=== PATIENT | male | born 1970 | race Caucasian/White ===

== ENCOUNTER 2019-12-01 11:03 | Emergency (ER) | payer OTHER ==
[2019-12-01 11:17] VITALS: BP 140/84; PULSE 90; TEMP 98; BMI 34.3
--- NOTE | 2019-12-01 12:20 | PDOC ---
History of Present Illness - General Chief Complaint: Laceration Stated Complaint: LACERATION Time Seen by Provider: 12/01/19 11:29 - History of Present Illness Initial Comments: 12/01/19 12:17 CHIEF COMPLAINT: laceration HISTORY OF PRESENT ILLNESS: 48-year-old male with no past medical history presents to fast track with laceration to left index finger. Patient reports he was cleaning out his garage when he cut his finger on a tile approximately 2 hr [employer]. Patient reports last tetanus shot was 3 years ago. No recent travel or sick contacts. PAST MEDICAL HISTORY: Denies past medical history FAMILY HISTORY: Denies SOCIAL HISTORY: Denies tobacco, alcohol, illicit drug use. SURGICAL HISTORY: Denies ALLERGIES: No known drug allergies REVIEW OF SYSTEMS General/Constitutional: Denies fever or chills. Denies weakness, weight change. HEENT: Denies change in vision. Denies ear pain or discharge. Denies sore throat. Cardiovascular: Denies chest pain or shortness of breath. Respiratory: Denies cough, wheezing, or hemoptysis. Gastrointestinal: Denies nausea, vomiting, diarrhea or constipation. Denies rectal bleeding. Genitourinary: Denies dysuria, frequency, or change in urination. Musculoskeletal: Denies joint or muscle swelling or pain. Denies neck or back pain. Skin: Laceration to left index finger. Neurologic: Denies headache, vertigo, loss of consciousness, or loss of sensation. Psychiatric: Denies depression or anxiety. PHYSICAL EXAM General Appearance: Well-appearing, appropriately dressed. No apparent distress , no intoxication. HEENT: EOMI, PERRLA, normal ENT inspection, normal voice, TMs normal, pharynx normal. No conjunctival pallor. No photophobia, scleral icterus. Neck: Supple. Trachea midline. No tenderness, rigidity, carotid bruit, stridor , lymphadenopathy, or thyromegaly. Respiratory/Chest: Lungs CTAB. No shortness of breath, chest tenderness, respiratory distress, accessory muscle use. No crackles, rales, rhonchi, stridor , wheezing, dullness Cardiovascular: RRR. S1, S2. No JVD, murmur, bradycardia, tachycardia. Vascular Pulses: Dorsalis-Pedis (R): 2+, Dorsalis-Pedis (L): 2+ Gastrointestinal/Abdominal: Normal bowel sounds. Abdomen soft, non-distended. No tenderness or rebound tenderness. No organomegaly, pulsatile mass, guarding , hernia, hepatomegaly, splenomegaly. Lymphatic: No adenopathy, tenderness. Musculoskeletal/Extremities: Linear laceration to palmar aspect of left index finger approximately 3 cm in length with no tendon involvement, no foreign body appreciated. FROM of all extremities, normal capillary refill. Pelvis Stable. No CVA tenderness. No tenderness to extremities, pedal edema, swelling, erythema or deformity. Integumentary: Appropriate color, dry, warm. No cyanosis, erythema, jaundice or rash Neurologic: safe and vault mechanic II-XII intact. Fully oriented, alert. Appropriate mood/affect. Motor strength 5/5. No appreciable EOM palsy, facial droop or sensory deficit. 12/01/19 12:19 Past History - Past Medical History Allergies/Adverse Reactions: Allergies Allergy/AdvReac Type Severity Reaction Status Date / Time No Known Allergies Allergy Verified 12/01/19 11:17 Home Medications: Ambulatory Orders Tramadol HCl [Ultram] 50 mg PO QID #20 tablet 05/31/15 COPD: No - Surgical History Abdominal Surgery: Yes (rt inguinal) - Psycho Social/Smoking Cessation Hx Smoking Status: No Smoking History: Never smoked Number of Cigarettes Smoked Daily: 0 Hx Alcohol Use: No *Physical Exam - Vital Signs Last Vital Signs Temp Pulse Resp BP Pulse Ox 98 F 90 18 140/84 99 12/01/19 11:14 12/01/19 11:14 12/01/19 11:14 12/01/19 11:14 12/01/19 11:14 Procedures - Consent Consent obtained: Verbal, From Patient - Laceration/Wound Repair Left Volar Finger 2nd digit Wound Length: 2.6 to 5.0 cm Wound Explored: clean, no foreign body present Wound's Depth, Shape: linear Irrigated w/ Saline: Yes Anesthesia: 1% Lidocaine Amount of Anesthetic (ccs): 3 Wound Repaired With: Sutures Suture Size/Type: 5:0 Number of Sutures: 5 Sterile Dressing Applied: Yes (xeroform, bandage) Progress: 12/01/19 12:38 Laceration repair performed with five 5-0 simple interrupted sutures. Edges well approximated, hemostasis achieved. Patient tolerated well. Medical Decision Making - Medical Decision Making 12/01/19 12:19 48-year-old male with no past medical history presents to fast track with laceration to left index finger. lac repair performed tdap UTD Post laceration repair instructions provided. Advised patient of signs and symptoms for return to ED. Patient verbalized understanding and agrees to plan. Discharge - Discharge Information Problems reviewed: Yes Clinical Impression/Diagnosis: Laceration of finger Qualifiers: Encounter type: sequela Finger: index finger Damage to nail status: without damage Foreign body presence: without foreign body Laterality: left Qualified Code(s): S61.211S - Laceration without foreign body of left index finger without damage to nail, sequela Condition: Stable Disposition: HOME - Admission No - Follow up/Referral Referrals: Riddhi Corcoran [Primary Care Provider] - - Patient Discharge Instructions Patient Printed Discharge Instructions: DI for Laceration Repair Additional Instructions: As discussed, please keep area of laceration clean and dry for the next 24-48 hours. Afterwards you may wash with mild soap and water. Return to fast track or your primary care doctor for suture removal in 10-14 days. If you experience any redness, swelling, streaking, warmth, to the site of the cut, or develop fever, nausea, vomiting, or diarrhea, please return to the ER. - Post Discharge Activity
== END 2019-12-01 12:44 | disposition home or self-care (01) ==
LOC: JERFT 11:03
PROC: 0JQK0ZZ Repair Left Hand Subcutaneous Tissue and Fascia, Open Approach (ICD-10-PCS; principal; 2019-12-01)
DX: S61.211A Laceration without foreign body of left index finger without damage to nail, initial encounter (principal); W26.8XXA Contact with other sharp object(s), not elsewhere classified, initial encounter; Y93.H9 Activity, other involving exterior property and land maintenance, building and construction; Y92.038 Other place in apartment as the place of occurrence of the external cause; Y99.8 Other external cause status
CPT/HCPCS: 99282-25

== ENCOUNTER 2020-01-31 13:13 | Emergency (ER) | payer OTHER ==
[2020-01-31] MEDS ORDERED: ACETAMINOPHEN 500 MG TABLET (FP) PO ONE (13:29)
--- NOTE | 2020-01-31 13:29 | PDOC ---
Rapid Medical Evaluation Time Seen by Provider: 01/31/20 13:17 Medical Evaluation: Allergies Allergy/AdvReac Type Severity Reaction Status Date / Time No Known Allergies Allergy Verified 12/01/19 11:17 01/31/20 13:27 CC: right cheek pain s/p slip and fall in shower PE: No bony deformity, crepitus or tenderness to palpation. EOMI. Orders: CT facial bones, tylenol Patient will proceed to ED for further evaluation. Discharge Disposition - Diagnosis Facial pain - Referrals - Patient Instructions - Post Discharge Activity
[2020-01-31 13:30] VITALS: BP 121/76; PULSE 77; TEMP 98.1; BMI 33.3
[2020-01-31] MEDS ORDERED: ACETAMINOPHEN 325 MG TABLET (FP) ONE (13:41)
[2020-01-31] MEDS ORDERED: IBUPROFEN 600 MG TABLET (FP) PO ONE ×2 (15:15→15:18)
--- NOTE | 2020-01-31 15:17 | PDOC ---
History of Present Illness - General Chief Complaint: Injury Stated Complaint: HEADACHE Time Seen by Provider: 01/31/20 13:17 - History of Present Illness Initial Comments: 01/31/20 15:15 49-year-old male denies comorbidities presents for evaluation of headache and dizziness after falling in the shower 2 days ago. Past History - Past Medical History Allergies/Adverse Reactions: Allergies Allergy/AdvReac Type Severity Reaction Status Date / Time No Known Allergies Allergy Verified 01/31/20 13:30 Home Medications: Ambulatory Orders NK [No Known Home Medication] 01/31/20 COPD: No - Surgical History Abdominal Surgery: Yes (rt inguinal) - Psycho Social/Smoking Cessation Hx Smoking Status: No Smoking History: Never smoked Number of Cigarettes Smoked Daily: 0 Hx Alcohol Use: No Drug/Substance Use Hx: No Review of Systems - Review of Systems Constitutional: No: Fever ABD/GI: No: Vomiting Neurological: Yes: Headache, Dizziness *Physical Exam - Vital Signs Last Vital Signs Temp Pulse Resp BP Pulse Ox 98.1 F 77 16 121/76 97 01/31/20 13:25 01/31/20 13:25 01/31/20 13:25 01/31/20 13:25 01/31/20 13:25 - Physical Exam 01/31/20 15:16 GENERAL: The patient is awake, alert, and fully oriented, in no acute distress. HEAD: Normal with no signs of trauma. EYES: sclera anicteric, conjunctiva clear. ENT: Ears normal tympanic membranes normal oropharynx clear uvula midline NECK: Normal range of motion LUNGS: Breath sounds equal, clear to auscultation bilaterally. No wheezes, and no crackles. HEART: S1 and S2 without murmur, rub or gallop. ABDOMEN: Soft, nontender, normoactive bowel sounds. No guarding, no rebound. No masses. EXTREMITIES: Normal range of motion, no edema. No clubbing or cyanosis. No cords, erythema, or tenderness. NEUROLOGICAL: Cranial nerves II through XII grossly intact. PSYCH: Normal mood, normal affect. SKIN: Warm, Dry, normal turgor, no rashes or lesions noted. ED Treatment Course - RADIOLOGY Radiology Studies Ordered: Category Date Time Status HEAD CT WITHOUT CONTRAST [CT] Stat CT Scan 01/31/20 14:03 Completed - Medications Given in the ED: ED Medications Discontinued Medications Generic Name Dose Route Start Last Admin Trade Name Chen PRN Reason Stop Dose Admin Acetaminophen 1,000 mg 01/31/20 13:29 01/31/20 13:44 Tylenol - PO 01/31/20 13:30 1,000 mg ONCE ONE Administration Medical Decision Making - Medical Decision Making 01/31/20 15:16 Negative CTs of facial bones and head, follow-up with neurology. Note for work provided no work x1 week until cleared by neurology. Also discussed postconcussive syndrome and restrictions no strenuous activity until cleared by neurology. I have reviewed the pathophysiology with the patient. They are in agreement with the treatment plan all questions were answered to their satisfaction. Understanding for follow-up without fail was also conveyed to the patient. Again they are in agreement. Discharge - Discharge Information Problems reviewed: Yes Clinical Impression/Diagnosis: Facial pain, Concussion Condition: Stable Disposition: HOME - Admission No - Follow up/Referral Referrals: Riddhi Corcoran [Primary Care Provider] - - Patient Discharge Instructions Additional Instructions: Tylenol and Motrin as directed for pain. Return to the emergency room for worsening symptoms. Without fail follow-up with neurology in 2 to 3 days for further evaluation and treatment options. No strenuous activity until cleared by neurology. - Post Discharge Activity Work/Back to School Note: Back to Work
== END 2020-01-31 15:19 | disposition home or self-care (01) ==
LOC: JERFT 13:13
DX: S06.0X0A Concussion without loss of consciousness, initial encounter (principal); G44.319 Acute post-traumatic headache, not intractable; W18.2XXA Fall in (into) shower or empty bathtub, initial encounter; Y93.E1 Activity, personal bathing and showering; Y92.031 Bathroom in apartment as the place of occurrence of the external cause; Y99.8 Other external cause status
CPT/HCPCS: 70450-TC; 70486-TC; 99284-25

== ENCOUNTER 2020-08-14 16:35 | Emergency (ER) | payer OTHER ==
--- NOTE | 2020-08-14 16:53 | PDOC ---
Rapid Medical Evaluation Time Seen by Provider: 08/14/20 16:51 Medical Evaluation: Allergies Allergy/AdvReac Type Severity Reaction Status Date / Time No Known Allergies Allergy Verified 01/31/20 13:30 08/14/20 16:51 I have performed a brief in-person evaluation of this patient The patient presents with a chief complaint of: R lower back pain, no sxs, n/v/f/c. No trauma Pertinent physical exam findings:stable, NAD I have ordered the following:nothing The patient will proceed to the ED for further evaluation Discharge Disposition - Diagnosis Low back ache Qualifiers: Chronicity: acute Back pain laterality: right Sciatica presence: without sciatica Qualified Code(s): M54.5 - Low back pain - Referrals - Patient Instructions - Post Discharge Activity
[2020-08-14 16:54] VITALS: BP 122/79; PULSE 80; TEMP 97.4; BMI 33.7
[2020-08-14 18:03] LABS: BASO % 0.7 % (0-2.0); EOS % 1.7 % (0-4.5); HEMATOCRIT 41.8 % (35.4-49); HEMOGLOBIN 14.2 GM/dL (11.7-16.9); LYMPH % 23.8 % (8-40); MCH 30.6 pg (25.7-33.7); MCHC 33.9 g/dl (32.0-35.9); MEAN CELL VOLUME 90.3 fl (80-96); MEAN PLT VOLUME 9.4 fl (7.5-11.1); NEUT % 68.8 % (42.8-82.8); PLATELET COUNT 208 K/MM3 (134-434); RBC 4.63 M/mm3 (4.00-5.60); RDW 13.5 % (11.9-15.9); WHITE BLOOD COUNT 9.9 K/mm3 (4.0-10.0)
[2020-08-14 18:43] LABS: ALBUMIN 4.4 g/dl (3.4-5.0); BILIRUBIN,TOTAL 0.7 mg/dL (0.2-1); BLOOD UREA NITROGEN 10.1 mg/dL (7-18); POTASSIUM 3.8 mmol/L (3.5-5.1); TOT PROT 7.8 g/dl (6.4-8.2)
--- OUTSIDE RECORDS SUMMARY | 2020-08-14 18:51 | XMS ---
:1970 Author Organization [facility] Care Team Providers Name Role Phone Kovoor, Erickson Unavailable Unavailable Kovoor, Erickson Unavailable Unavailable Kovoor, Erickson Unavailable Unavailable Kovoor, Erickson Unavailable Unavailable Kovoor, Erickson Unavailable Unavailable Kovoor, Erickson Unavailable Unavailable Kovoor, Erickson Unavailable Unavailable Kovoor, Erickson Unavailable Unavailable Kovoor, Erickson Unavailable Unavailable Kovoor, Erickson Unavailable Unavailable Kovoor, Erickson Unavailable Unavailable Papo Reyez Unavailable [phone] Costa, Kira C Unavailable Unavailable Costa, C Unavailable Unavailable Costa, C Unavailable Unavailable Costa, C Unavailable Unavailable Costa, C Unavailable Unavailable Costa, C Unavailable Unavailable Costa, C Unavailable Unavailable Costa, C Unavailable Unavailable Costa, C Unavailable Unavailable Soham Unavailable [phone] Ringstad Unavailable Unavailable Ringstad Unavailable Unavailable Ringstad Unavailable Unavailable Ringstad Unavailable Unavailable Ringstad Unavailable Unavailable Ringstad Unavailable Unavailable Ringstad Unavailable Unavailable Ringstad Unavailable Unavailable Ringstad Unavailable Unavailable Ringstad Unavailable Unavailable Austin Unavailable [phone] Austin Unavailable [phone] Riddhi Unavailable [phone] Riddhi Unavailable [phone] Riddhi Unavailable [phone] Riddhi Unavailable [phone] Riddhi Unavailable [phone] Grider Unavailable Unavailable Grider Unavailable Unavailable Grider Unavailable Unavailable Grider Unavailable Unavailable Grider Unavailable Unavailable Grider Unavailable Unavailable Grider Unavailable Unavailable Grider Unavailable Unavailable Grider Unavailable Unavailable Grider Unavailable Unavailable Darkey Unavailable Unavailable Darkey Unavailable Unavailable Darkey Unavailable Unavailable Darkey Unavailable Unavailable Ridley Unavailable [phone] Ridley Unavailable + DANDRE DARLENE Unavailable Unavailable Aszalos, Zaria Unavailable Unavailable Aszalos, Zaria Unavailable Unavailable Aszalos, Zaria Unavailable Unavailable Aszalos, Zaria Unavailable Unavailable Aszalos, Zaria Unavailable Unavailable Aszalos, Zaria Unavailable Unavailable Aszalos, Zaria Unavailable Unavailable Aszalos, Zaria Unavailable Unavailable Aszalos, Zaria Unavailable Unavailable Erin Craig MD Unavailable Unavailable Erin Craig MD Unavailable Unavailable Erin Craig MD Unavailable Unavailable Erin Craig MD Unavailable Unavailable Erin Craig MD Unavailable Unavailable Erin Craig MD Unavailable Unavailable Erin Craig MD Unavailable Unavailable Erin Craig MD Unavailable Unavailable Erin Craig MD Unavailable Unavailable Erin Craig MD Unavailable Unavailable Erin Craig MD Unavailable Unavailable Erin Craig MD Unavailable Unavailable Erin Craig MD Unavailable Unavailable Erin Craig MD Unavailable Unavailable Erin Craig MD Unavailable Unavailable Dandre, P MD Unavailable Unavailable Dandre, P MD Unavailable Unavailable Dandre, P MD Unavailable Unavailable Dandre, P MD Unavailable Unavailable Dandre, P MD Unavailable Unavailable Dandre, P MD Unavailable Unavailable Ringstad Unavailable Unavailable Ringstad Unavailable Unavailable Ringstad Unavailable Unavailable Ringstad Unavailable Unavailable Ringstad Unavailable Unavailable Ringstad Unavailable Unavailable Ringstad Unavailable Unavailable Ringstad Unavailable Unavailable Ringstad Unavailable Unavailable Ringstad Unavailable Unavailable Dandre Unavailable Unavailable Dandre Unavailable Unavailable Dandre Unavailable Unavailable Dandre Unavailable Unavailable Re-disclosure Warning The records that you are about to access may contain information from federally- assisted alcohol or drug abuse programs. If such information is present, then the following federally mandated warning applies: This information has been disclosed to you from records protected by federal confidentiality rules (42 CFR part 2). The federal rules prohibit you from making any further disclosure of this information unless further disclosure is expressly permitted by the written consent of the person to whom it pertains or as otherwise permitted by 42 CFR part 2. A general authorization for the release of medical or other information is NOT sufficient for this purpose. The Federal rules restrict any use of the information to criminally investigate or prosecute any alcohol or drug abuse patient.The records that you are about to access may contain highly sensitive health information, the redisclosure of which is protected by Article 27-F of the [facility] Public Health law. If you continue you may haveaccess to information: Regarding HIV / AIDS; Provided by facilities licensed or operated by the [facility] Office of Mental Health; or Provided by the [facility] Office for People With Developmental Disabilities. If such information is present, then the following [facility] mandated warning applies: This information has been disclosed to you from confidential records which are protected by state law. State law prohibits you from making any further disclosure of this information without the specific written consent of the person to whom it pertains, or as otherwise permitted by law. Any unauthorized further disclosure in violation of state law may result in a fine or chcf sentence or both. A general authorization for the release of medical or other information is NOT sufficient authorization for further disclosure. Allergies and Adverse Reactions Type Description Substance Reaction Status Data Source(s ) Propensity to Propensity to Propensity to NEXTG EN ([facility] adverse reactions adverse reactions adverse reactions [facility] Medical (disorder) (disorder) (disorder) Center) Family History Family Member Family Member Family Member Date of Description Data Source(s) Name Gender Status Status Unknown Female Diagnosis 01/19/2008 NEXTGEN ([facility] 12:00:00 AM [facility]) Encounters Encounter Providers Location Date Indications Data Source(s ) Outpatient Attender: Nelia Marquis 06/19/2020 [facility] VelezAdmitter: 03:58:00 Medical Ce nter Nelia PM EDT VelezReferrer: Nelia Grider OutpatientWell Attender: Kira [facility] 06/19/2020 HELENE GEN ([facility] Igor Garcia [place] 03:58:00 [facility] Est,40-64years PM EDT - Medical 06/19/2020 [place]) 03:58:00 PM EDT Outpatient 06/19/2020 [facility] 09:41:00 Medical Center AM EDT Outpatient 06/19/2020 [facility] 12:00:00 Medical Center AM EDT Attender: [facility] 03/27/2020 NEXTGEN ( int [facility] 11:20:00 Niall AM EDT - Medical 03/27/2020 Center) 11:20:00 AM EDT Attender: [facility] 01/23/2020 NEXTGEN ( int [facility] 10:55:00 Niall AM EST - Medical 01/23/2020 Center) 10:55:00 AM EST Outpatient Attender: Nelia H 12/28/2019 [facility] VelezAdmitter: 05:44:00 Medical Ce nter Nelia PM EST VelezReferrer: Nelia Grider OutpatientOFFICE/OUT Attender: [facility] 12/28/2019 N EXTGEN ([facility] PATIENT VISIT, EST [facility] 05:44:00 Noe phs PM EST - Medical 12/28/2019 Center) 05:44:00 PM EST Outpatient 12/28/2019 [facility] 02:51:00 Medical Center PM EST Outpatient 12/28/2019 [facility] 12:00:00 Medical Center AM EST Attender: [facility] 12/26/2019 NEXTGEN ( int [facility] [place] 12:31:00 Niall PM EST - Medical 12/26/2019 Center) 12:31:00 PM EST Attender: [facility] 10/19/2019 NEXTGEN ( int [facility] [place] 11:34:00 Niall AM EST - Medical 10/19/2019 Center) 11:34:00 AM EST Outpatient Attender: DARLENE H 10/18/2019 [facility] 06:25:00 Medical Center MINALAdmitter: PM EST DARLENE DANDRE MINALReferrer: DARLENE DANDRE DARLENE OutpatientOFFICE/OUT Attender: [facility] 10/18/2019 N EXTGEN ([facility] PATIENT VISIT, EST [facility] 06:25:00 Noe phs PM EST - Medical 10/18/2019 Center) 06:25:00 PM EST Outpatient 10/18/2019 [facility] 02:28:00 Medical Center PM EST Outpatient 10/18/2019 [facility] 12:00:00 Medical Center AM EST Outpatient 08/10/2019 [facility] 10:49:00 Medical Center AM EDT Outpatient 08/10/2019 [facility] 12:00:00 Medical Center AM EDT Attender: [facility] 06/22/2019 NEXTGEN [facility] 02[facility] Niall PM EDT - Medical 06/22/2019 Center) 02:40:00 PM EDT Outpatient 06/21/2019 [facility] 03:41:00 Medical Center PM EDT Outpatient 06/21/2019 [facility] 12:00:00 Medical Center AM EDT Outpatient Attender: 06/07/2019 [facility] Riddhi 02:46:00 Medical Center Navarro PM EDT r: Riddhi Moss r: Riddhi Corcoran Attender: [facility] 02:46:00 Niall PM EDT - Medical 06/07/2019 Center) 02:46:00 PM EDT Outpatient 06/07/2019 [facility] 01:16:00 Medical Center PM EDT Outpatient 06/07/2019 [facility] 12:00:00 Medical Center AM EDT Outpatient 05/11/2019 [facility] 03:08:00 Medical Center PM EDT Attender: [facility] 05/11/2019 NEXTGEN [facility] 01:44:00 Niall PM EDT - Medical 05/11/2019 Center) 01:44:00 PM EDT Outpatient Attender: Nelia Marquis 05/11/2019 [facility] VelezAdmitter: 01:44:00 Medical Ce nter Nelia PM EDT VelezReferrer: Nelia Grider Outpatient 05/11/2019 [facility] 12:00:00 Medical Center AM EDT Attender: Lali [facility] 04/07/2019 RALF N ([facility] 11:01:00 Niall AM EDT - Medical 04/07/2019 Center) 11:01:00 AM EDT Attender: [facility] 03/08/2019 NEXTGEN ([facility] 09:19:00 Niall AM EDT - Medical 03/08/2019 Center) 09:19:00 AM EDT Outpatient 03/07/2019 [facility] 12:54:00 Medical Center PM EDT Outpatient Attender: Nelia Marquis 03/07/2019 [facility] VelezAdmitter: 08:43:00 Medical Ce nter Nelia AM EDT VelezReferrer: Nelia Grider OutpatientOFFICE/OUT Attender: [facility] 03/07/2019 N EXTGEN ([facility], EST [facility] 08:43:00 Noe [facility] EDT - Medical 03/07/2019 Center) 08:43:00 AM EDT Outpatient 03/07/2019 [facility] 12:00:00 Medical Center AM EDT Emergency H 02/28/2019 [facility] 08:15:00 Medical Center PM EDT Outpatient 02/17/2019 [facility] 11:27:00 ([facility] EDT [facility]) Attender: [facility] 12/28/2018 NEXTGE N ([facility] 05:00:00 Niall PM EST - Medical 12/28/2018 Center) 05:00:00 PM EST Attender: [facility] 09/01/2018 NEXTGEN ([facility] 08:53:00 Niall AM EDT - Medical 09/01/2018 Center) 08:53:00 AM EDT Attender: [facility] 08/19/2018 NEXTGEN ([facility] 03:24:00 Niall PM EDT - Medical 08/19/2018 Center) 03:24:00 PM EDT Attender: [facility] 01/08/2018 NEXTGEN ( int [facility] 02:28:00 Niall PM EST - Medical 01/08/2018 Center) 02:28:00 PM EST Attender: [facility] 10/29/2017 NEXTGEN ([facility] 09:18:00 Niall AM EST - Medical 10/29/2017 Center) 09:18:00 AM EST Attender: [facility] 04/13/2017 NEXTGEN ([facility] 08:49:00 Niall Soham AM EDT - Medical 04/13/2017 Center) 08:49:00 AM EDT Attender: [place] 02/18/2017 NEXTGEN ([facility] 09:10:00 Niall AM EDT - Medical 02/18/2017 Center) 09:10:00 AM EDT Attender: [place] 02/04/2017 NEXTGEN ([facility] 09:11:00 Niall AM EST - Medical 02/04/2017 Center) 09:11:00 AM EST Attender: [facility] 01/14/2017 NEXTGEN ([facility] 09:11:00 Niall Soham AM EST - Medical 01/14/2017 Center) 09:11:00 AM EST Attender: Cliff [facility] 10/13/2016 NEXTGE N ([facility] 01:43:00 Niall PM EST - Medical 10/13/2016 Center) 01:43:00 PM EST Attender: [facility] 07/14/2016 NEXTGEN (Sa int [facility] 02:23:00 Niall PM EDT - Medical 07/14/2016 Center) 02:23:00 PM EDT Attender: Darlene [facility] 06/03/2016 NEXTGE N ([facility] 04:59:00 Niall PM EDT - Medical 06/03/2016 Center) 04:59:00 PM EDT Attender: [facility] 03/19/2016 NEXTGEN ([facility] 02:58:00 Niall Soham PM EDT - Medical 03/19/2016 Center) 02:58:00 PM EDT Attender: [place] 12/12/2015 NEXTGEN ([facility] 09:30:00 Niall AM EST - Medical 12/12/2015 Center) 09:30:00 AM EST Attender: [facility] 12/04/2015 NEXTGEN ([facility] 03:03:00 Niall Soham PM EST - Medical 12/04/2015 Center) 03:03:00 PM EST Attender: [facility] 10/22/2015 NEXTGEN ([facility] 03:45:00 Niall Soham PM EST - Medical 10/22/2015 Center) 03:45:00 PM EST Attender: [facility] 09/25/2015 NEXTGEN ([facility] 03:57:00 Niall Soham PM EDT - Medical 09/25/2015 Center) 03:57:00 PM EDT Attender: [facility] 05/21/2015 NEXTGEN ([facility] 03:49:00 Niall Soham PM EDT - Medical 05/21/2015 Center) 03:49:00 PM EDT Attender: [facility] 04/30/2015 NEXTGEN ([facility] 03:50:00 Niall Soham PM EDT - Medical 04/30/2015 Center) 03:50:00 PM EDT Attender: Papo [facility] 04/17/2015 NEXTGE N ([facility] 10:45:00 Niall AM EDT - Medical 04/17/2015 Center) 10:45:00 AM EDT Attender: [facility] 03/22/2015 NEXTGEN ( int [facility] 01:28:00 Niall Soham PM EDT - Medical 03/22/2015 Center) 01:28:00 PM EDT Attender: Safia [facility] 01/05/2015 NEXTGE N ([facility] 01:40:00 Niall PM EST - Medical 01/05/2015 Center) 01:40:00 PM EST Attender: [facility] 12/29/2014 NEXTGEN ( int [facility] 03:18:00 Niall Soham PM EST - Medical 12/29/2014 Center) 03:18:00 PM EST Attender: [facility] 09/28/2014 NEXTGEN ( int [facility] 05:45:00 Niall Ringstad PM EDT - Medical 09/28/2014 Center) 05:45:00 PM EDT Attender: [facility] 02/09/2014 NEXTGEN ( [facility] 05:32:00 Niall Ringstad PM EDT - Medical 02/09/2014 Center) 05:32:00 PM EDT Attender: [facility] 10/18/2013 NEXTGEN ( int [facility] 03:03:00 Niall Ringstad PM EST - Medical 10/18/2013 Center) 03:03:00 PM EST Attender: [facility] 07/20/2013 NEXTGEN ( int [facility] 05:50:00 Niall Ringstad PM EDT - Medical 07/20/2013 Center) 05:50:00 PM EDT Attender: [facility] 04/20/2013 NEXTGEN ( int [facility] 05:53:00 Niall Ringstad PM EDT - Medical 04/20/2013 Center) 05:53:00 PM EDT Attender: [facility] 12/08/2012 NEXTGEN ( int [facility] 05:32:00 Niall Ringstad PM EST - Medical 12/08/2012 Center) 05:32:00 PM EST Attender: [facility] 10/28/2012 NEXTGEN ( int [facility] 01:35:00 Niall Ringstad PM EST - Medical 10/28/2012 Center) 01:35:00 PM EST Attender: Papo [facility] 07/19/2012 NEXTGE N ([facility] 09:42:00 Niall AM EDT - Medical 07/19/2012 Center) 09:42:00 AM EDT Attender: [facility] 05/12/2012 NEXTGEN ( int [facility] 05:31:00 Niall Ringstad PM EDT - Medical 05/12/2012 Center) 05:31:00 PM EDT Attender: [facility] 01/28/2012 NEXTGEN ( int [facility] 04:26:00 Niall Ringstad PM EST - Medical 01/28/2012 Center) 04:26:00 PM EST Attender: [facility] 11/26/2011 NEXTGEN ( int [facility] 04:47:00 Niall Ringstad PM EST - Medical 11/26/2011 Center) 04:47:00 PM EST Attender: [facility] 09/24/2011 NEXTGEN ([facility] 06:15:00 Niall Ringstad PM EDT - Medical 09/24/2011 Center) 06:15:00 PM EDT Attender: [facility] 08/11/2011 NEXTGEN ( int [facility] 09:43:00 Niall Ringstad AM EDT - Medical 08/11/2011 Center) 09:43:00 AM EDT Attender: [facility] 06/18/2011 NEXTGEN ([facility] 05:44:00 Niall Ringstad PM EDT - Medical 06/18/2011 Center) 05:44:00 PM EDT Attender: [facility] 05/07/2011 NEXTGEN ( int [facility] 06:09:00 Niall Ringstad PM EDT - Medical 05/07/2011 Center) 06:09:00 PM EDT Attender: [facility] 03/05/2011 NEXTGEN ( int [facility] 05:54:00 Niall Ringstad PM EDT - Medical 03/05/2011 Center) 05:54:00 PM EDT Attender: [facility] 12/18/2010 NEXTGEN ([facility] 05:23:00 Niall Ringstad PM EST - Medical 12/18/2010 Center) 05:23:00 PM EST Attender: [facility] 09/18/2010 NEXTGEN ( int [facility] 06:23:00 Niall Ringstad PM EDT - Medical 09/18/2010 Center) 06:23:00 PM EDT Attender: [facility] 08/14/2010 NEXTGEN (Sa int [facility] Center 05:15:00 Niall Ringstad PM EDT - Medical 08/14/2010 Center) 05:15:00 PM EDT Attender: [facility] 07/25/2010 NEXTGEN (Sa int [facility] Center 04:54:00 Niall PERRY PM EDT - Medical 07/25/2010 Center) 04:54:00 PM EDT Attender: [facility] 06/05/2010 NEXTGEN (Sa int [facility] 05:06:00 Niall Ringstad PM EDT - Medical 06/05/2010 Center) 05:06:00 PM EDT Attender: [facility] 04/03/2010 NEXTGEN ( int [facility] 06:30:00 Niall Ringstad PM EDT - Medical 04/03/2010 Center) 06:30:00 PM EDT Attender: [facility] 01/16/2010 NEXTGEN ( int [facility] 06:17:00 Niall Ringstad PM EST - Medical 01/16/2010 Center) 06:17:00 PM EST Attender: [facility] 01/19/2008 NEXTGE N ([facility] 02:58:00 Niall PM EST - Medical 01/19/2008 Center) 02:58:00 PM EST Immunizations Vaccine Date Status Description Data Source(s) New in 2011. IIV4 03/07/2019 completed Influenza, Injectable, NEXTGEN ([facility] 12:00:00 AM EDT Quadrivalent [facility] Center) Source: New Immunization Record New in 2011. 10/29/2017 12:00:00 completed Influenza, injectable , NEXTGEN ([facility] IIV4 AM EST quadrivalent, Niall Medica l preservative free, 3 Center) yrs or older Source: New Immunization Record Tdap 01/14/2017 12:00:00 AM EST completed Tdap N EXTGEN ([facility]) Source: New Immunization Record IIV3. This is one 09/25/2015 12:00:00 completed Influenza, seaso nal, NEXTGEN ([facility] of two codes AM EDT injectable (3 yrs or [facility] Medical replacing CVX 15, older) Center) which is being retired. Source: New Immunization Record This code is being 09/28/2014 12:00:00 completed Flu (split) (3 NEXTGEN ([facility] retired. It will still be AM EDT yrs or older) [facility] Medical found in older Center) immunization records. It included both preservative free and non-preservative free. Source: New Immunization Record IIV3. This vaccine 10/18/2013 12:00:00 completed flu (split) NE XTGEN ([facility] code is one of two AM EST preservative free, 3 [facility] Medical which replace CVX yrs or older Center) 15, influenza, split virus. Source: New Immunization Record IIV3. This is one of 10/28/2012 12:00:00 completed Flu (split) ( 3 NEXTGEN ([facility] two codes replacing AM EST yrs or older) [facility] CVX 15, which is Center) being retired. Source: New Immunization Record IIV3. This is one of 09/24/2011 12:00:00 completed Flu (split) ( 3 NEXTGEN ([facility] two codes replacing AM EDT yrs or older) [facility] CVX 15, which is Center) being retired. Source: New Immunization Record IIV3. This vaccine 12/18/2010 12:00:00 completed flu (split) NE XTGEN ([facility] code is one of two AM EST preservative free, 3 [facility] Medical which replace CVX yrs or older Center) 15, influenza, split virus. Source: New Immunization Record Tdap 12/30/2006 12:00:00 AM EST completed Tdap N EXTGEN ([facility]) Source: New Immunization Record This CVX code has 09/19/2005 12:00:00 AM EDT completed PPD NEXTGEN ([facility] utility and Medical C enter) should rarely be used. Source: New Immunization Record This CVX code has 09/17/2005 12:00:00 AM completed Td (adult) NEXTGEN ([facility] little utility and EDT Niall M edical should rarely be Center) used. Source: New Immunization Record This CVX code has 08/20/2000 12:00:00 AM EDT completed PPD NEXTGEN ([facility] Niall ndiaye utility and Medical C enter) should rarely be used. Source: New Immunization Record This CVX code has 08/19/1995 12:00:00 AM completed Td (adult) NEXTGEN ([facility] ndiaye utility and EDT Niall M edical should rarely be Center) used. Source: New Immunization Record This CVX code has 08/19/1995 12:00:00 AM EDT completed PPD NEXTGEN ([facility]l ndiaye utility and Medical C enter) should rarely be used. Source: New Immunization Record Medications Medication Brand Start Product Dose Route [facility] Indications Reaction Description Data Name Date Form Instructions Instructions Source(s) Famotidine famoti ORAL active take 1 N EXTGEN 40 MG Oral dine 2020 {tbl} tablet by ( int Tablet 40 mg 12:00: oral route Noe phs famotidine tablet 00 AM every day a t Medical 40 mg EDT bedtime Center) tablet Omeprazole omepra ORAL active take 1 N EXTGEN 20 MG zole 2020 {caps capsule by ([facility] Delayed 20 mg 12:00: ule} oral route Jorge ephs Release capsul 00 AM every day 30 M edical Oral e,sami EST minutes to 1 Cente r) Capsule yed hour before omeprazole releas a meal 20 mg e capsule,del ayed release POLYETHYLEN Mirala 10/18/ 17 G ORAL active POLYETH YLENE NEXTGEN E GLYCOL x 2018 GLYCOL 3350 ([place] nt 3350 142 gram/d 12:00: 48168 MG Jorge ephs MG/ML Oral ose 00 AM Powder for Me dical Solution oral EST Oral Center) [Miralax] powder Solution Miralax 17 [Miralax] gram/dose oral powder Clotrimazol clotri 05/11/ TOPICA active apply by NEXTGEN e 10 MG/ML mazole 2019 L topical ([place] Topical 1 % 12:00: route 2 Niall Cream topica 00 AM times every Medi lety clotrimazol l EDT day to the nter) e 1 % cream affected and topical surrounding cream areas of skin in the morning and evening Ibuprofen ibupro .00 ORAL active take 1 NE XTGEN 400 MG Oral fen 2019 {tbl} tablet by (S aint Tablet 400 mg 12:00: oral route Jorge ephs ibuprofen tablet 00 AM every 4 - 6 Medical 400 mg EDT hours as Center) tablet needed Ibuprofen ibupro 1 complet [facility] 800 MG Oral fen ed Niall Tablet 800 mg Medical ibuprofen Tablet [place] 800 mg , Tablet, Ordere Ordered By: d By: Ayala Mas MDDirection , s: 1 tablet MDDire oral every ctions eight hours : 1 PRN tablet pain-modera oral te every eight hours PRN pain-m oderat e Insurance Providers Payer name Policy type Policy ID Covered Covered alliance party's Policy P khoi / Coverage alliance party ID relationship to [place] Inf ormation type morse LINDA W [id number] 01 [id number] CARE LINDA [id number] SP [id number] HEALTH NON CAP Self Pay 18 Problems, Conditions, and Diagnoses Code Display Name Description Problem Type Effective Data Dates Source(s) 60908072 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 016 NEXTGEN 12:00:00 AM ([facility]) [id number] 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/30/2015 NE XTGEN hyperplasia hyperplasia 12:00:00 AM ([facility]) [id number] Mantoux: positive Mantoux: positive Problem 04/30/2015 NEXTGEN 12:00:00 AM ([facility]) [id number] Obesity Obesity Problem 10/18/2013 NEXTGEN 12:00:00 AM ([facility]) [id number] Kidney stone Kidney stone Problem 01/19/2008 NEXTGEN 12:00:00 AM ([facility]) [id number] Gastroesophageal Gastroesophageal Problem 01/19/2008 NE XTGEN reflux disease reflux disease 12:00:00 AM ([facility]) [id number] Low back pain Low back pain Problem 01/19/2008 NEXTGEN 12:00:00 AM ([facility]) Z71.89 Other specified OTHER SPECIFIED Diagnosis 06/19/2020 Eliazar josue counseling COUNSELING 03:58:00 PM [facility] Z68.36 Body mass index BODY MASS INDEX Diagnosis 06/19/2020 Eliazar josue (BMI) 36.0-36.9, (BMI) 36.0-36.9, 03:58:00 PM [facility] adult ADULT [facility] K21.0 Gastro-esophageal GASTRO-ESOPHAGEAL Diagnosis 06/19/2020 reflux disease with REFLUX DISEASE WITH 03:58:0 0 PM [facility] esophagitis ESOPHAGITIS [facility] R06.83 Snoring SNORING Diagnosis 06/19/2020 [facility] 03:58:00 PM [facility] Z13.9 Encounter for ENCOUNTER FOR Diagnosis 06/19/2020 [facility] screening, SCREENING, 03:58:00 PM [facility] unspecified UNSPECIFIED [facility] Z00.01 Encounter for ENCOUNTER FOR Diagnosis 06/19/2020 [facility] general adult GENERAL ADULT 03:58:00 PM [facility] medical examination MEDICAL EXAM W EDT M edical with abnormal ABNORMAL FINDINGS Cent er findings 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.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, bilateral OF EYE, BILATERAL 05:44:00 PM [facility] K21.9 Gastro-esophageal GASTRO-ESOPHAGEAL Diagnosis 12/28/2019 [facility] reflux disease REFLUX DISEASE 05:44:00 PM [facility] without esophagitis WITHOUT ESOPHAGITIS [facility] K59.00 Constipation, CONSTIPATION, Diagnosis 10/18/2019 [facility] unspecified UNSPECIFIED 06:25:00 PM [facility] R73.03 Prediabetes PREDIABETES Diagnosis 10/18/2019 [facility] 06:25:00 PM [facility] Z68.34 Body mass index BODY MASS INDEX Diagnosis 03/07/2019 Eliazar t (BMI) 34.0-34.9, (BMI) 34.0-34.9, 08:43:00 AM [facility] adult ADULT [facility] Z23 Encounter for ENCOUNTER FOR Diagnosis 03/07/2019 [facility] immunization IMMUNIZATION 08:43:00 AM [facility] Z11.3 Encounter for ENCNTR SCREEN FOR Diagnosis 03/07/2019 Eliazar t screening for INFECTIONS W SEXL 08:43:00 AM Jorge gutierrez infections with a MODE OF TRANSMISS [facility] Medical predominantly sexual Cent er mode of transmission K40.90 Unilateral inguinal UNIL INGUINAL Diagnosis 03/07/2019 Sa int hernia, without HERNIA, W/O OBST OR 08:43:00 AM Niall obstruction or GANGR, NOT SPCF EDT Me dical gangrene, not RECUR Center specified as recurrent Surgeries/Procedures Procedure Description Date Indications Data Source(s) Well Visit, 06/19/2020 NEXTGEN ([facility] Est,40-64years 12:00:00 AM EDT [facility] 06/19/2020 Center) 12:00:00 AM EDT ROUTINE VENIPUNCTURE 06/19/2020 NEXTGEN ([facility] 12:00:00 AM EDT [facility] - 06/19/2020 Center) 12:00:00 AM EDT OFFICE/OUTPATIENT VISIT, 12/28/2019 NEX TGEN ([facility] EST 12:00:00 AM EST [facility] - 12/28/2019 Center) 12:00:00 AM EST OFFICE/OUTPATIENT VISIT, 10/18/2019 NEX TGEN ([facility] 12:00:00 AM EST [facility] - 10/18/2019 [place]) 12:00:00 AM EST OFFICE/OUTPATIENT VISIT, 03/07/2019 NEX TGEN ([facility] EST 12:00:00 AM EDT [facility] - 03/07/2019 [place]) 12:00:00 AM EDT Influenza, Injectable, 3 03/07/2019 NEX TGEN ([facility] Yrs Or Older 12:00:00 AM EDT [facility] - 03/07/2019 Center) 12:00:00 AM EDT [facility]07[facility]2019 [facility] Administration 12:00:00 AM EDT [facility] dical - 03/07/2019 [place]) 12:00:00 AM EDT Results ID Date Data Source Urinalysis.[id number] 10/21/2019 08:44:00 AM [facility] 0 Name Value Range Interpretation Description Data Sup porting Code Source(s) Document(s ) Color of Urine YELLOW <content [facility] styleCode="Sherice Naill d">Color, Medical Urine Center </content>YELL OW <content styleCode="Kelly lics"> (YELLOW )</content> Ketones NEGATIVE <content [facility] [Mass/volume] styleCode="Sherice Niall in Urine by d">Urine Medical Test strip [facility] </content>NEGA TIVE MG/DL<content styleCode="Kelly lics"> (NEGATIVE MG/DL)</conten t> Glucose NEGATIVE <content [facility] [Mass/volume] styleCode="Sherice Niall in Urine by d">Urine Medical Test strip Glucose Center </content>NEGA TIVE MG/DL<content styleCode="Kelly lics"> (NEGATIVE MG/DL)</conten t> UNK CLEAR <content [facility] styleCode="Sherice Conns d">Urine Medical Clarity Center </content>SAVANNAH R <content styleCode="Kelly lics"> (CLEAR )</content> UNK NEGATIVE <content [facility] styleCode="Sherice Niall d">Urine Medical Bilirubin Center </content>NEGA TIVE <content styleCode="Kelly lics"> (NEGATIVE )</content> Specific 1.015-1.02 <content [facility] gravity of 5 styleCode="Sherice Tierney Urine by Test d">Urine Medical strip Specific Center [place] </content>1.02 0 <content styleCode="Kelly lics"> (1.015-1.025 )</content> pH of Urine by 4.5-8.0 <content [facility] Test strip styleCode="Sherice Niall d">Urine pH Medical </content>5.5 Center <content styleCode="Kelly lics"> (4.5-8.0 )</content> Protein NEGATIVE <content [facility] [Mass/volume] styleCode="Sherice Conns in Urine by d">Urine Medical Test strip Protein Center </content>NEGA TIVE MG/DL<content styleCode="Kelly lics"> (NEGATIVE MG/DL)</conten t> Hemoglobin NEGATIVE <content [facility] [Presence] in styleCode="Sherice Conns Urine by Test d">Urine Blood Medical strip </content>NEGA Center TIVE <content styleCode="Kelly lics"> (NEGATIVE )</content> Nitrite NEGATIVE <content [facility] [Presence] in styleCode="Sherice Conns Urine by Test d">Urine Medical strip Nitrite Center </content>NEGA TIVE <content styleCode="Kelly lics"> (NEGATIVE )</content> Leukocyte NEGATIVE <content [facility] esterase styleCode="Sherice Niall [Presence] in d">Urine Medical Urine by Test Leukocyte Center strip </content>NEGA TIVE <content styleCode="Kelly lics"> (NEGATIVE )</content> Urobilinogen 0.2-1.0 <content [facility] [Units/volume] styleCode="Sherice Tierney in Urine by d">Urine Medical Test strip Urobilinogen Center </content>0.2 MG/DL<content styleCode="Kelly lics"> (0.2-1.0 MG/DL)</conten t> ID Date Data Source Liver 10/21/2019 08:44:00 AM EST [facility] Profile.[id number] Name Value Range Interpretation Description Data Sup porting Code Source(s) Document(s ) Alkaline 38-126 <content [facility] phosphatase styleCode="Bold"> [facility] [Enzymatic Alkaline Medical activity/volume] Phosphatase (ALP) Cente r in Serum or Plasma </content>91 IU/L<content styleCode="Italic s"> (38-126 IU/L)</content> Bilirubin.total 0.2-1.3 <content [facility] [Mass/volume] in styleCode="Bold"> [facility] Serum or Plasma Bilirubin Total Medical </content>0.6 Center MG/DL<content styleCode="Italic s"> (0.2-1.3 MG/DL)</content> Alanine 7-50 <content [facility] aminotransferase styleCode="Bold"> [facility] [Enzymatic Alanine Medical activity/volume] Aminotransferase Center in Serum or Plasma (ALT) </content>32 IU/L<content styleCode="Italic s"> (7-50 IU/L)</content> Aspartate 17-59 <content [facility] aminotransferase styleCode="Bold"> [facility] [Enzymatic Aspartate Medical activity/volume] Aminotransferase Center in Serum or Plasma (AST) </content>35 IU/L<content styleCode="Italic s"> (17-59 IU/L)</content> Albumin 3.5-5.0 <content [facility] [Mass/volume] in styleCode="Bold"> [facility] Serum or Plasma Albumin Medical </content>4.4 Center G/DL<content styleCode="Italic s"> (3.5-5.0 G/DL)</content> ID Date Data Source LIPID.[id number] 10/21/2019 08:44:00 AM CHAITANYA Mauro [facility] Name Value Range Interpretation Description Data Sup porting Code Source(s) Document(s ) UNK > 60 Below low normal <content [facility] styleCode="Sherice Niall d">HDL- Medical Cholesterol Center </content>39 MG/DL L<content styleCode="Kelly lics"> (> 60 MG/DL)</conten t> UNK < 100 Above high normal <content [facility] styleCode="Sherice Niall d">LDL-Cholest Medical patricia Center </content>133 MG/DL H<content styleCode="Kelly lics"> (< 100 MG/DL)</conten t> Triglyceride < 150 Above high normal <content [facility] [Mass/volume] in styleCode="Sherice Niall Serum or Plasma d">Triglycerid [facility] Center </content>209 MG/DL H<content styleCode="Kelly lics"> (< 150 MG/DL)</conten t> Cholesterol -<200 Above high normal <content [facility] [Mass/volume] in styleCode="Sherice Niall Serum or Plasma d">Cholesterol Medical </content>214 Center MG/DL H<content styleCode="Kelly lics"> (-<200 MG/DL)</conten t> ID Date Data Source HematologyRou.[id number] 10/21/2019 08:44:00 AM CHAITANYA Mirza [facility] 0500 Name Value Range Interpretation Description Data Sup porting Code Source(s) Document(s ) Hematocrit 41.0-53. <content [facility] [Volume 0 styleCode="Bold Niall Fraction] of ">Hematocrit Medical Blood by </content>43.4 Center Automated count %<content styleCode="Ital ics"> (41.0-53.0 %)</content> Erythrocytes 4.4-5.9 <content [facility] [#/volume] in styleCode="Bold Niall Blood by ">Red Blood Medical Automated count Cell Count Center </content>4.78 MCUMM<content styleCode="Ital ics"> (4.4-5.9 MCUMM)</content > Hemoglobin 13.5-17. <content [facility] [Mass/volume] in 5 styleCode="Bold Niall Blood ">Hemoglobin Medical </content>14.6 Center G/DL<content styleCode="Ital ics"> (13.5-17.5 G/DL)</content> Leukocytes 4.4-11.0 <content [facility] [#/volume] in styleCode="Bold Niall Blood by ">White Blood Medical Automated count Cell Count Center </content>7.76 KCUMM<content styleCode="Ital ics"> (4.4-11.0 KCUMM)</content > Erythrocyte mean 32.0-37. <content [facility] corpuscular 0 styleCode="Bold Niall hemoglobin ">Mean Corpus. Medical concentration Hgb Center [Mass/volume] by Concentration Automated count (MCHC) </content>33.6 G/DL<content styleCode="Ital ics"> (32.0-37.0 G/DL)</content> Erythrocyte 11.5-14. <content [facility] distribution 5 styleCode="Bold Niall width [Ratio] by ">Red Cell Medical Automated count Distribution Center Width </content>12.4 %<content styleCode="Ital ics"> (11.5-14.5 %)</content> Platelets <content [facility] [#/volume] in styleCode="Bold Niall Blood by ">Platelet Medical Automated count Count Center </content>Test not performed. KCUMM (Reference Range: not available)
Erythrocyte mean 26.0-34. <content [facility] corpuscular 0 styleCode="Bold Niall hemoglobin ">Mean Medical [Entitic mass] Corposcular Center by Automated Hemoglobin count </content>30.5 PG<content styleCode="Ital ics"> (26.0-34.0 PG)</content> Erythrocyte mean 80.0-100 <content [facility] corpuscular .0 styleCode="Bold Niall volume [Entitic ">Mean Medical volume] by Corpuscular Center Automated count Volume </content>90.8 FL<content styleCode="Ital ics"> (80.0-100.0 FL)</content> Lymphocytes 24.0-44. <content [facility] [#/volume] in 0 styleCode="Bold Niall Blood by ">Lymphocyte Medical Automated count </content>29.4 Center %<content styleCode="Ital ics"> (24.0-44.0 %)</content> UNK 1.6-7.3 <content [facility] styleCode="Bold Niall ">Neutrophil Medical Count Center </content>4.68 KCUMM<content styleCode="Ital ics"> (1.6-7.3 KCUMM)</content > UNK 1.0-4.8 <content [facility] styleCode="Bold Niall ">Lymphocyte Medical Count Center </content>2.28 KCUMM<content styleCode="Ital ics"> (1.0-4.8 KCUMM)</content > Neutrophils 36-66 <content [facility] [#/volume] in styleCode="Bold Niall Blood by ">Neutrophil Medical Automated count </content>60.3 Center %<content styleCode="Ital ics"> (36-66 %)</content> Platelet mean 8.0-11.0 Above high <content [facility] volume [Entitic normal styleCode="Bold Niall volume] in Blood ">Mean Platelet Medical by Automated Volume Center count </content>12.6 FL H<content styleCode="Ital ics"> (8.0-11.0 FL)</content> UNK 0.0-0.6 <content [facility] styleCode="Bold Niall ">Eosinophil Medical Count Center </content>0.33 KCUMM<content styleCode="Ital ics"> (0.0-0.6 KCUMM)</content > Eosinophils 0-5.0 <content [facility] [#/volume] in styleCode="Bold Niall Blood by ">Eosinophil Medical Automated count </content>4.3 Center %<content styleCode="Ital ics"> (0-5.0 %)</content> UNK 0.2-0.9 <content [facility] styleCode="Bold Niall ">Monocyte Medical Count Center </content>0.38 KCUMM<content styleCode="Ital ics"> (0.2-0.9 KCUMM)</content > Monocytes 3.0-10.0 <content [facility] [#/volume] in styleCode="Bold Niall Blood by ">Monocyte Medical Automated count </content>4.9 Center %<content styleCode="Ital ics"> (3.0-10.0 %)</content> UNK 0.0-0.3 <content [facility] styleCode="Bold Niall ">Basophil Medical Count Center </content>0.04 KCUMM<content styleCode="Ital ics"> (0.0-0.3 KCUMM)</content > UNK 0.0 <content [facility] styleCode="Bold Niall ">Nucleated Red Medical Blood Cell Center Count </content>0.00 KCUMM<content styleCode="Ital ics"> (0.0 KCUMM)</content > UNK 0 <content [facility] styleCode="Bold Niall ">Nucleated Red Medical Blood Cell Center </content>0.0 /100<content styleCode="Ital ics"> (0 /100)</content> Basophils 0.0-1.0 <content [facility] [#/volume] in styleCode="Bold Niall Blood by ">Basophil Medical Automated count </content>0.5 Center %<content styleCode="Ital ics"> (0.0-1.0 %)</content> UNK 0-0.1 <content [facility] styleCode="Bold Niall ">Immature Medical Granulocyte Center Count </content>0.05 KCUMM<content styleCode="Ital ics"> (0-0.1 KCUMM)</content > UNK < 1 <content [facility] styleCode="Bold Niall ">Immature Medical Granulocyte Center Ratio </content>0.6 %<content styleCode="Ital ics"> (< 1 %)</content> ID Date Data Source GFR(Creatinine).[id number] 10/21/2019 08:44:00 AM CHAITANYA Mirza [facility] 0-0500 Name Value Range Interpretation Code Description Data Dee rce(s) Supporting Document(s ) UNK > 60 <content [facility] styleCode="Bold"> Medical Cent er EGFR </content>110 GFR<content styleCode="Italic s"> (> 60 GFR)</content> ID Date Data Source CHMROUTINECCDA.[id number] 10/21/2019 08:44:00 AM CHAITANYA [facility] -0500 Name Value Range Interpretation Description Data Sup porting Code Source(s) Document(s ) UNK >= 1.0 <content [facility] styleCode="Bold Medical ">AG Ratio Center </content>1.4 <content styleCode="Ital ics"> (>= 1.0 )</content> Protein 6.3-8.2 <content [facility] [Mass/volum styleCode="Bold Medical e] in Serum ">Total Protein Center or Plasma </content>7.5 G/DL<content styleCode="Ital ics"> (6.3-8.2 G/DL)</content> UNK 4.2-5.8 Above high normal <content [facility] styleCode="Bold Medical ">Hemoglobin Center A1C </content>6.0 % H<content styleCode="Ital ics"> (4.2-5.8 %)</content> UNK 2.3-3.5 <content [facility] styleCode="Bold Medical ">Globulin Center </content>3.1 G/DL<content styleCode="Ital ics"> (2.3-3.5 G/DL)</content> ID Date Data Source [facility].[id number] 10/21/2019 08:44:00 AM EST [facility] Name Value Range Interpretation Description Data Sup porting Code Source(s) Document(s ) Chloride 98-107 <content [facility] [Moles/volume] in styleCode="Bold"> [facility] Serum or Plasma Chloride Medical </content>105 Center MEQ/L<content styleCode="Italic s"> (98-107 MEQ/L)</content> Sodium 137-145 <content [facility] [Moles/volume] in styleCode="Bold"> [facility] Serum or Plasma Sodium Medical </content>139 Center MEQ/L<content styleCode="Italic s"> (137-145 MEQ/L)</content> Carbon dioxide, 22-30 <content [facility] total styleCode="Bold"> Niall [Moles/volume] in Carbon Dioxide Medical Serum or Plasma </content>26 Center MEQ/L<content styleCode="Italic s"> (22-30 MEQ/L)</content> Potassium 3.5-5.3 <content [facility] [Moles/volume] in styleCode="Bold"> Noe phs Serum or Plasma Potassium Medical </content>4.7 Center MEQ/L<content styleCode="Italic s"> (3.5-5.3 MEQ/L)</content> Glucose 74-106 Above high <content [facility] [Mass/volume] in normal styleCode="Bold"> [facility] Serum or Plasma Glucose Medical </content>107 Center MG/DL H<content styleCode="Italic s"> (74-106 MG/DL)</content> UNK 9-20 <content [facility] styleCode="Bold"> Niall BUN </content>15 Medical MG/DL<content Center styleCode="Italic s"> (9-20 MG/DL)</content> Creatinine 0.5-1.3 <content [facility] [Mass/volume] in styleCode="Bold"> [facility] Serum or Plasma Creatinine Medical </content>0.8 Center MG/DL<content styleCode="Italic s"> (0.5-1.3 MG/DL)</content> UNK > 60 <content [facility] styleCode="Bold"> Niall EGFR Medical </content>110 Center GFR<content styleCode="Italic s"> (> 60 GFR)</content> Calcium 8.4-10. <content [facility] [Mass/volume] in 2 styleCode="Bold"> [facility] Serum or Plasma Calcium Medical </content>9.7 Center MG/DL<content styleCode="Italic s"> (8.4-10.2 MG/DL)</content> Alkaline 38-126 <content [facility] phosphatase styleCode="Bold"> Niall [Enzymatic Alkaline Medical activity/volume] Phosphatase (ALP) Cente r in Serum or Plasma </content>91 IU/L<content styleCode="Italic s"> (38-126 IU/L)</content> Bilirubin.total 0.2-1.3 <content [facility] [Mass/volume] in styleCode="Bold"> [facility] Serum or Plasma Bilirubin Total Medical </content>0.6 Center MG/DL<content styleCode="Italic s"> (0.2-1.3 MG/DL)</content> Aspartate 17-59 <content [facility] aminotransferase styleCode="Bold"> [facility] [Enzymatic Aspartate Medical activity/volume] Aminotransferase Center in Serum or Plasma (AST) </content>35 IU/L<content styleCode="Italic s"> (17-59 IU/L)</content> Alanine 7-50 <content [facility] aminotransferase styleCode="Bold"> [facility] [Enzymatic Alanine Medical activity/volume] Aminotransferase Center in Serum or Plasma (ALT) </content>32 IU/L<content styleCode="Italic s"> (7-50 IU/L)</content> Albumin 3.5-5.0 <content [facility] [Mass/volume] in styleCode="Bold"> [facility] Serum or Plasma Albumin Medical </content>4.4 Center G/DL<content styleCode="Italic s"> (3.5-5.0 G/DL)</content> ID Date Data Source Urinalysis.[id number] 03/07/2019 10:01:00 AM EDT [facility] 0 Name Value Range Interpretation Description Data Sup porting Code Source(s) Document(s ) UNK CLEAR <content [facility] styleCode="Sherice Niall d">Urine Medical Clarity Center </content>SAVANNAH R <content styleCode="Kelly lics"> (CLEAR )</content> Color of Urine YELLOW <content [facility] styleCode="Sherice Niall d">Color, Medical Urine Center </content>YELL OW <content styleCode="Kelly lics"> (YELLOW )</content> Glucose NEGATIVE <content [facility] [Mass/volume] styleCode="Sherice Tierney in Urine by d">Urine Medical Test strip Glucose Center </content>NEGA TIVE MG/DL<content styleCode="Kelly lics"> (NEGATIVE MG/DL)</conten t> UNK NEGATIVE <content [facility] styleCode="Sherice Niall d">Urine Medical Bilirubin Center </content>NEGA TIVE <content styleCode="Kelly lics"> (NEGATIVE )</content> Hemoglobin NEGATIVE <content [facility] [Presence] in styleCode="Sherice Niall Urine by Test d">Urine Blood Medical strip </content>NEGA Center TIVE <content styleCode="Kelly lics"> (NEGATIVE )</content> pH of Urine by 4.5-8.0 <content [facility] Test strip styleCode="Sherice Niall d">Urine pH Medical </content>8.0 Center <content styleCode="Kelly lics"> (4.5-8.0 )</content> Ketones NEGATIVE <content [facility] [Mass/volume] styleCode="Sherice Niall in Urine by d">Urine Medical Test strip Ketone Center </content>NEGA TIVE MG/DL<content styleCode="Kelly lics"> (NEGATIVE MG/DL)</conten t> Specific 1.015-1.02 <content [facility] gravity of 5 styleCode="Sherice Niall Urine by Test d">Urine Medical strip Specific Center [place] </content>1.01 5 <content styleCode="Kelly lics"> (1.015-1.025 )</content> Urobilinogen 0.2-1.0 <content [facility] [Units/volume] styleCode="Sherice Niall in Urine by d">Urine Medical Test strip Urobilinogen Center </content>0.2 MG/DL<content styleCode="Kelly lics"> (0.2-1.0 MG/DL)</conten t> Protein NEGATIVE <content [facility] [Mass/volume] styleCode="Sherice Niall in Urine by d">Urine Medical Test strip Protein Center </content>NEGA TIVE MG/DL<content styleCode="Kelly lics"> (NEGATIVE MG/DL)</conten t> Nitrite NEGATIVE <content [facility] [Presence] in styleCode="Sherice Niall Urine by Test d">Urine Medical strip Nitrite Center </content>NEGA TIVE <content styleCode="Kelly lics"> (NEGATIVE )</content> Leukocyte NEGATIVE <content [facility] esterase styleCode="Sherice Tierney [Presence] in d">Urine Medical Urine by Test Leukocyte Center strip </content>NEGA TIVE <content styleCode="Kelly lics"> (NEGATIVE )</content> ID Date Data Source Liver 03/07/2019 10:01:00 AM EDT [facility] Profile.[id number] Name Value Range Interpretation Description Data Sup porting Code Source(s) Document(s ) Alanine 7-50 <content [facility] aminotransferase styleCode="Bold"> [facility] [Enzymatic Alanine Medical activity/volume] Aminotransferase Center in Serum or Plasma (ALT) </content>22 IU/L<content styleCode="Italic s"> (7-50 IU/L)</content> Aspartate 17-59 <content [facility] aminotransferase styleCode="Bold"> [facility] [Enzymatic Aspartate Medical activity/volume] Aminotransferase Center in Serum or Plasma (AST) </content>22 IU/L<content styleCode="Italic s"> (17-59 IU/L)</content> Alkaline 38-126 <content [facility] phosphatase styleCode="Bold"> [facility] [Enzymatic Alkaline Medical activity/volume] Phosphatase (ALP) Cente r in Serum or Plasma </content>100 IU/L<content styleCode="Italic s"> (38-126 IU/L)</content> Albumin 3.5-5.0 <content [facility] [Mass/volume] in styleCode="Bold"> [facility] Serum or Plasma Albumin Medical </content>4.6 Center G/DL<content styleCode="Italic s"> (3.5-5.0 G/DL)</content> Bilirubin.total 0.2-1.3 <content [facility] [Mass/volume] in styleCode="Bold"> [facility] Serum or Plasma Bilirubin Total Medical </content>0.4 Center MG/DL<content styleCode="Italic s"> (0.2-1.3 MG/DL)</content> ID Date Data Source LIPID.[id number] 03/07/2019 10:01:[address] [facility] Name Value Range Interpretation Description Data Sup porting Code Source(s) Document(s ) Triglyceride < 150 Above high normal <content [facility] [Mass/volume] in styleCode="Sherice Niall Serum or Plasma d">Triglycerid [facility] Center </content>226 MG/DL H<content styleCode="Kelly lics"> (< 150 MG/DL)</conten t> UNK > 60 Below low normal <content [facility] styleCode="Sehrice Niall d">HDL- Medical Cholesterol Center </content>49 MG/DL L<content styleCode="Kelly lics"> (> 60 MG/DL)</conten t> Cholesterol -<200 <content [facility] [Mass/volume] in styleCode="Sherice Niall Serum or Plasma d">Cholesterol Medical </content>178 Center MG/DL<content styleCode="Kelly lics"> (-<200 MG/DL)</conten t> UNK < 100 <content [facility] styleCode="Sherice Niall d">[facility] </content>84 MG/DL<content styleCode="Kelly lics"> (< 100 MG/DL)</conten t> ID Date Data Source HematologyRou.[id number] 03/07/2019 10:01:00 AM EDT [facility] 0400 Name Value Range Interpretation Description Data Sup porting Code Source(s) Document(s ) Leukocytes 4.4-11.0 <content [facility] [#/volume] in styleCode="Bold Niall Blood by ">White Blood Medical Automated count Cell Count Center </content>7.95 KCUMM<content styleCode="Ital ics"> (4.4-11.0 [facility])</content > Erythrocyte mean 80.0-100 <content [facility] corpuscular .0 styleCode="Bold Niall volume [Entitic ">Mean Medical volume] by Corpuscular Center Automated count Volume </content>93.7 FL<content styleCode="Ital ics"> (80.0-100.0 FL)</content> Erythrocytes 4.4-5.9 <content [facility] [#/volume] in styleCode="Bold Niall Blood by ">Red Blood Medical Automated count Cell Count Center </content>4.94 [facility]UMM<content styleCode="Ital ics"> (4.4-5.9 [facility])</content > Hemoglobin 13.5-17. <content [facility] [Mass/volume] in 5 styleCode="Bold Niall Blood ">Hemoglobin Medical </content>15.3 Center G/DL<content styleCode="Ital ics"> (13.5-17.5 G/DL)</content> Hematocrit 41.0-53. <content [facility] [Volume 0 styleCode="Bold Niall Fraction] of ">Hematocrit Medical Blood by </content>46.3 Center Automated count %<content styleCode="Ital ics"> (41.0-53.0 %)</content> Erythrocyte 11.5-14. <content [facility] distribution 5 styleCode="Bold Niall width [Ratio] by ">Red Cell Medical Automated count Distribution Center Width </content>12.6 %<content styleCode="Ital ics"> (11.5-14.5 %)</content> Erythrocyte mean 32.0-37. <content [facility] corpuscular 0 styleCode="Bold Niall hemoglobin ">Mean Corpus. Medical concentration Hgb Center [Mass/volume] by Concentration Automated count (MCHC) </content>33.0 G/DL<content styleCode="Ital ics"> (32.0-37.0 G/DL)</content> Erythrocyte mean 26.0-34. <content [facility] corpuscular 0 styleCode="Bold Niall hemoglobin ">Mean Medical [Entitic mass] Corposcular Center by Automated Hemoglobin count </content>31.0 PG<content styleCode="Ital ics"> (26.0-34.0 PG)</content> Platelets 130-400 <content [facility] [#/volume] in styleCode="Bold Niall Blood by ">Platelet Medical Automated count Count Center </content>243 [facility]<content styleCode="Ital ics"> (130-400 [facility])</content > UNK 1.0-4.8 <content [facility] styleCode="Bold Niall ">Lymphocyte Medical Count Center </content>2.24 [facility]<content styleCode="Ital ics"> (1.0-4.8 [facility])</content > Lymphocytes 24.0-44. <content [facility] [#/volume] in 0 styleCode="Bold Niall Blood by ">Lymphocyte Medical Automated count </content>28.2 Center %<content styleCode="Ital ics"> (24.0-44.0 %)</content> Platelet mean 8.0-11.0 <content [facility] volume [Entitic styleCode="Bold Niall volume] in Blood ">Mean Platelet Medical by Automated Volume Center count </content>10.9 FL<content styleCode="Ital ics"> (8.0-11.0 FL)</content> UNK 1.6-7.3 <content [facility] styleCode="Bold Niall ">Neutrophil Medical Count Center </content>5.13 KC[facility]M<content styleCode="Ital ics"> (1.6-7.3 [facility])</content > Neutrophils 36-66 <content [facility] [#/volume] in styleCode="Bold Niall Blood by ">Neutrophil Medical Automated count </content>64.5 Center %<content styleCode="Ital ics"> (36-66 %)</content> UNK 0.0-0.6 <content [facility] styleCode="Bold Niall ">Eosinophil Medical Count Center </content>0.10 [facility]<content styleCode="Ital ics"> (0.0-0.6 [facility])</content > Monocytes 3.0-10.0 <content [facility] [#/volume] in styleCode="Bold Niall Blood by ">Monocyte Medical Automated count </content>4.9 Center %<content styleCode="Ital ics"> (3.0-10.0 %)</content> UNK 0.2-0.9 <content [facility] styleCode="Bold Niall ">Monocyte Medical Count Center </content>0.39 [facility]<content styleCode="Ital ics"> (0.2-0.9 [facility])</content > Eosinophils 0-5.0 <content [facility] [#/volume] in styleCode="Bold Niall Blood by ">Eosinophil Medical Automated count </content>1.3 Center %<content styleCode="Ital ics"> (0-5.0 %)</content> UNK 0.0 <content [facility] styleCode="Bold Niall ">Nucleated Red Medical Blood Cell Center Count </content>0.00 KC[facility]<content styleCode="Ital ics"> (0.0 [facility])</content > Basophils 0.0-1.0 <content [facility] [#/volume] in styleCode="Bold Niall Blood by ">Basophil Medical Automated count </content>0.6 Center %<content styleCode="Ital ics"> (0.0-1.0 %)</content> UNK 0.0-0.3 <content [facility] styleCode="Bold Niall ">Basophil Medical Count Center </content>0.05 KC[facility]<content styleCode="Ital ics"> (0.0-0.3 [facility])</content > UNK 0 <content [facility] styleCode="Bold Niall ">Nucleated Red Medical Blood Cell Center </content>0.0 /100<content styleCode="Ital ics"> (0 /100)</content> UNK 0-0.1 <content [facility] styleCode="Bold Niall ">Immature Medical Granulocyte Center Count </content>0.04 [facility]<content styleCode="Ital ics"> (0-0.1 [facility])</content > UNK < 1 <content [facility] styleCode="Bold Niall ">Immature Medical Granulocyte Center Ratio </content>0.5 %<content styleCode="Ital ics"> (< 1 %)</content> ID Date Data Source GFR(Creatinine).[id number] 03/07/2019 10:01:00 AM EDT [facility] 0-0400 Name Value Range Interpretation Code Description Data Dee rce(s) Supporting Document(s ) UNK > 60 <content [facility] styleCode="Bold"> Medical Cent er EGFR </content>96 GFR<content styleCode="Italic s"> (> 60 GFR)</content> ID Date Data Source MEÑO.[id number] 03/07/2019 10:01:00 AM EDT [facility] -0400 Name Value Range Interpretation Description Data Sup porting Code Source(s) Document(s ) UNK >= 1.0 <content [facility] styleCode="Bold Medical ">AG Ratio Center </content>1.5 <content styleCode="Ital ics"> (>= 1.0 )</content> UNK 2.3-3.5 <content [facility] styleCode="Bold Medical ">Globulin Center </content>3.1 G/DL<content styleCode="Ital ics"> (2.3-3.5 G/DL)</content> Protein 6.3-8.2 <content [facility] [Mass/volum styleCode="Bold Medical e] in Serum ">Total Protein Center or Plasma </content>7.7 G/DL<content styleCode="Ital ics"> (6.3-8.2 G/DL)</content> UNK 4.2-5.8 <content [facility] styleCode="Bold Medical ">Hemoglobin Center A1C </content>5.7 %<content styleCode="Ital ics"> (4.2-5.8 %)</content> ID Date Data Source [facility].[id number] 03/07/2019 10:01:00 AM EDT [facility] Name Value Range Interpretation Description Data Sup porting Code Source(s) Document(s ) Sodium 137-145 <content [facility] [Moles/volume] in styleCode="Bold"> Noe phs Serum or Plasma Sodium Medical </content>141 Center MEQ/L<content styleCode="Italic s"> (137-145 MEQ/L)</content> Carbon dioxide, 22-30 Above high <content [facility] total normal styleCode="Bold"> Niall [Moles/volume] in Carbon Dioxide Medical Serum or Plasma </content>31 Center MEQ/L H<content styleCode="Italic s"> (22-30 MEQ/L)</content> Potassium 3.5-5.3 <content [facility] [Moles/volume] in styleCode="Bold"> Noe phs Serum or Plasma Potassium Medical </content>4.9 Center MEQ/L<content styleCode="Italic s"> (3.5-5.3 MEQ/L)</content> UNK 9-20 <content [facility] styleCode="Bold"> Niall BUN </content>13 Medical MG/DL<content Center styleCode="Italic s"> (9-20 MG/DL)</content> Creatinine 0.5-1.3 <content [facility] [Mass/volume] in styleCode="Bold"> Loyd hs Serum or Plasma Creatinine Medical </content>0.9 Center MG/DL<content styleCode="Italic s"> (0.5-1.3 MG/DL)</content> Chloride 98-107 <content [facility] [Moles/volume] in styleCode="Bold"> Noe phs Serum or Plasma Chloride Medical </content>101 Center MEQ/L<content styleCode="Italic s"> (98-107 MEQ/L)</content> Calcium 8.4-10. <content [facility] [Mass/volume] in 2 styleCode="Bold"> Loyd hs Serum or Plasma Calcium Medical </content>9.6 Center MG/DL<content styleCode="Italic s"> (8.4-10.2 MG/DL)</content> Aspartate 17-59 <content [facility] aminotransferase styleCode="Bold"> Loyd hs [Enzymatic Aspartate Medical activity/volume] Aminotransferase Center in Serum or Plasma (AST) </content>22 IU/L<content styleCode="Italic s"> (17-59 IU/L)</content> Glucose 74-106 Above high <content [facility] [Mass/volume] in normal styleCode="Bold"> Loyd hs Serum or Plasma Glucose Medical </content>115 Center MG/DL H<content styleCode="Italic s"> (74-106 MG/DL)</content> UNK > 60 <content [facility] styleCode="Bold"> Niall EGFR </content>96 Medical GFR<content Center styleCode="Italic s"> (> 60 GFR)</content> Bilirubin.total 0.2-1.3 <content [facility] [Mass/volume] in styleCode="Bold"> Loyd hs Serum or Plasma Bilirubin Total Medical </content>0.4 Center MG/DL<content styleCode="Italic s"> (0.2-1.3 MG/DL)</content> Albumin 3.5-5.0 <content [facility] [Mass/volume] in styleCode="Bold"> Loyd hs Serum or Plasma Albumin Medical </content>4.6 Center G/DL<content styleCode="Italic s"> (3.5-5.0 G/DL)</content> Alkaline 38-126 <content [facility] phosphatase styleCode="Bold"> Niall [Enzymatic Alkaline Medical activity/volume] Phosphatase (ALP) Cente r in Serum or Plasma </content>100 IU/L<content styleCode="Italic s"> (38-126 IU/L)</content> Alanine 7-50 <content [facility] aminotransferase styleCode="Bold"> Loyd hs [Enzymatic Alanine Medical activity/volume] Aminotransferase Center in Serum or Plasma (ALT) </content>22 IU/L<content styleCode="Italic s"> (7-50 IU/L)</content> ID Date Data Source Urinalysis 03/07/2019 10:01:00 AM EDT [facility] Name Value Range Interpretation Description Data Sup porting Code Source(s) Document(s ) UNK CLEAR <content [facility] styleCode="Sherice Conns d">Urine Medical Clarity Center </content>SAVANNAH R <content styleCode="Kelly lics"> (CLEAR )</content> Glucose NEGATIVE <content [facility] [Mass/volume] styleCode="Sherice Tierney in Urine by d">Urine Medical Test strip Glucose Center </content>NEGA TIVE MG/DL<content styleCode="Kelly lics"> (NEGATIVE MG/DL)</conten t> Color of Urine YELLOW <content [facility] styleCode="Sherice Conns d">Color, Medical Urine Center </content>YELL OW <content styleCode="Kelly lics"> (YELLOW )</content> UNK NEGATIVE <content [facility] styleCode="Sherice Niall d">Urine Medical Bilirubin Center </content>NEGA TIVE <content styleCode="Kelly lics"> (NEGATIVE )</content> Hemoglobin NEGATIVE <content [facility] [Presence] in styleCode="Sherice Conns Urine by Test d">Urine Blood Medical strip </content>NEGA Center TIVE <content styleCode="Kelly lics"> (NEGATIVE )</content> Ketones NEGATIVE <content [facility] [Mass/volume] styleCode="Sherice Conns in Urine by d">Urine Medical Test strip Ketone Center </content>NEGA TIVE MG/DL<content styleCode="Kelly lics"> (NEGATIVE MG/DL)</conten t> Specific 1.015-1.02 <content [facility] gravity of 5 styleCode="Sherice Conns Urine by Test d">Urine Medical strip Specific Center [place] </content>1.01 5 <content styleCode="Kelly lics"> (1.015-1.025 )</content> Leukocyte NEGATIVE <content [facility] esterase styleCode="Sherice Conns [Presence] in d">Urine Medical Urine by Test Leukocyte Center strip </content>NEGA TIVE <content styleCode="Kelly lics"> (NEGATIVE )</content> Nitrite NEGATIVE <content [facility] [Presence] in styleCode="Sherice Conns Urine by Test d">Urine Medical strip Nitrite Center </content>NEGA TIVE <content styleCode="Kelly lics"> (NEGATIVE )</content> Urobilinogen 0.2-1.0 <content [facility] [Units/volume] styleCode="Sherice Conns in Urine by d">Urine Medical Test strip Urobilinogen Center </content>0.2 MG/DL<content styleCode="Kelly lics"> (0.2-1.0 MG/DL)</conten t> pH of Urine by 4.5-8.0 <content [facility] Test strip styleCode="Sherice Niall d">Urine pH Medical </content>8.0 Center <content styleCode="Kelly lics"> (4.5-8.0 )</content> Protein NEGATIVE <content [facility] [Mass/volume] styleCode="Sherice Niall in Urine by d">Urine Medical Test strip Protein Center </content>NEGA TIVE MG/DL<content styleCode="Kelly lics"> (NEGATIVE MG/DL)</conten t> ID Date Data Source Liver Profile 03/07/2019 10:01:00 AM EDT [facility] Name Value Range Interpretation Description Data Sup porting Code Source(s) Document(s ) Aspartate 17-59 <content [facility] aminotransferase styleCode="Bold"> Loyd hs [Enzymatic Aspartate Medical activity/volume] Aminotransferase Center in Serum or Plasma (AST) </content>22 IU/L<content styleCode="Italic s"> (17-59 IU/L)</content> Alanine 7-50 <content [facility] aminotransferase styleCode="Bold"> Loyd hs [Enzymatic Alanine Medical activity/volume] Aminotransferase Center in Serum or Plasma (ALT) </content>22 IU/L<content styleCode="Italic s"> (7-50 IU/L)</content> Alkaline 38-126 <content [facility] phosphatase styleCode="Bold"> Niall [Enzymatic Alkaline Medical activity/volume] Phosphatase (ALP) Cente r in Serum or Plasma </content>100 IU/L<content styleCode="Italic s"> (38-126 IU/L)</content> Bilirubin.total 0.2-1.3 <content [facility] [Mass/volume] in styleCode="Bold"> Loyd hs Serum or Plasma Bilirubin Total Medical </content>0.4 Center MG/DL<content styleCode="Italic s"> (0.2-1.3 MG/DL)</content> Albumin 3.5-5.0 <content [facility] [Mass/volume] in styleCode="Bold"> Loyd hs Serum or Plasma Albumin Medical </content>4.6 Center G/DL<content styleCode="Italic s"> (3.5-5.0 G/DL)</content> ID Date Data Source LIPID 03/07/2019 10:01:00 AM EDT [facility] Name Value Range Interpretation Description Data Sup porting Code Source(s) Document(s ) Triglyceride < 150 Above high normal <content [facility] [Mass/volume] in styleCode="Sherice Niall Serum or Plasma d">Triglycerid Medical es Center </content>226 MG/DL H<content styleCode="Kelly lics"> (< 150 MG/DL)</conten t> UNK > 60 Below low normal <content [facility] styleCode="Sherice Niall d">HDL- Medical Cholesterol Center </content>49 MG/DL L<content styleCode="Kelly lics"> (> 60 MG/DL)</conten t> UNK < 100 <content [facility] styleCode="Sherice Niall d">LDL-[facility] Center </content>84 MG/DL<content styleCode="Kelly lics"> (< 100 MG/DL)</conten t> Cholesterol -<200 <content [facility] [Mass/volume] in styleCode="Sherice Niall Serum or Plasma d">Cholesterol Medical </content>178 Center MG/DL<content styleCode="Kelly lics"> (-<200 MG/DL)</conten t> ID Date Data Source HematologyRou 03/07/2019 10:01:00 AM EDT [facility] Name Value Range Interpretation Description Data Sup porting Code Source(s) Document(s ) Leukocytes 4.4-11.0 <content [facility] [#/volume] in styleCode="Bold Niall Blood by ">White Blood Medical Automated count Cell Count Center </content>7.95 [facility]<content styleCode="Ital ics"> (4.4-11.0 [facility])</content > Erythrocyte mean 80.0-100 <content [facility] corpuscular .0 styleCode="Bold Niall volume [Entitic ">Mean Medical volume] by Corpuscular Center Automated count Volume </content>93.7 FL<content styleCode="Ital ics"> (80.0-100.0 FL)</content> Erythrocytes 4.4-5.9 <content [facility] [#/volume] in styleCode="Bold Niall Blood by ">Red Blood Medical Automated count Cell Count Center </content>4.94 [facility]<content styleCode="Ital ics"> (4.4-5.9 [facility])</content > Hematocrit 41.0-53. <content [facility] [Volume 0 styleCode="Bold Niall Fraction] of ">Hematocrit Medical Blood by </content>46.3 Center Automated count %<content styleCode="Ital ics"> (41.0-53.0 %)</content> Hemoglobin 13.5-17. <content [facility] [Mass/volume] in 5 styleCode="Bold Niall Blood ">Hemoglobin Medical </content>15.3 Center G/DL<content styleCode="Ital ics"> (13.5-17.5 G/DL)</content> Erythrocyte mean 26.0-34. <content [facility] corpuscular 0 styleCode="Bold Niall hemoglobin ">Mean Medical [Entitic mass] Corposcular Center by Automated Hemoglobin count </content>31.0 PG<content styleCode="Ital ics"> (26.0-34.0 PG)</content> UNK 1.6-7.3 <content [facility] styleCode="Bold Niall ">Neutrophil Medical Count Center </content>5.13 [facility]M<content styleCode="Ital ics"> (1.6-7.3 [facility])</content > Platelet mean 8.0-11.0 <content [facility] volume [Entitic styleCode="Bold Niall volume] in Blood ">Mean Platelet Medical by Automated Volume Center count </content>10.9 FL<content styleCode="Ital ics"> (8.0-11.0 FL)</content> Erythrocyte mean 32.0-37. <content [facility] corpuscular 0 styleCode="Bold Niall hemoglobin ">Mean Corpus. Medical concentration Hgb Center [Mass/volume] by Concentration Automated count (MCHC) </content>33.0 G/DL<content styleCode="Ital ics"> (32.0-37.0 G/DL)</content> Platelets 130-400 <content [facility] [#/volume] in styleCode="Bold Niall Blood by ">Platelet Medical Automated count Count Center </content>243 KC[facility]M<content styleCode="Ital ics"> (130-400 [facility])</content > Erythrocyte 11.5-14. <content [facility] distribution 5 styleCode="Bold Niall width [Ratio] by ">Red Cell Medical Automated count Distribution Center Width </content>12.6 %<content styleCode="Ital ics"> (11.5-14.5 %)</content> Neutrophils 36-66 <content [facility] [#/volume] in styleCode="Bold Niall Blood by ">Neutrophil Medical Automated count </content>64.5 Center %<content styleCode="Ital ics"> (36-66 %)</content> UNK 0.2-0.9 <content [facility] styleCode="Bold Niall ">Monocyte Medical Count Center </content>0.39 KC[facility]M<content styleCode="Ital ics"> (0.2-0.9 [facility])</content > Monocytes 3.0-10.0 <content [facility] [#/volume] in styleCode="Bold Niall Blood by ">Monocyte Medical Automated count </content>4.9 Center %<content styleCode="Ital ics"> (3.0-10.0 %)</content> UNK 1.0-4.8 <content [facility] styleCode="Bold Niall ">Lymphocyte Medical Count Center </content>2.24 KC[facility]M<content styleCode="Ital ics"> (1.0-4.8 [facility])</content > Lymphocytes 24.0-44. <content [facility] [#/volume] in 0 styleCode="Bold Niall Blood by ">Lymphocyte Medical Automated count </content>28.2 Center %<content styleCode="Ital ics"> (24.0-44.0 %)</content> Eosinophils 0-5.0 <content [facility] [#/volume] in styleCode="Bold Niall Blood by ">Eosinophil Medical Automated count </content>1.3 Center %<content styleCode="Ital ics"> (0-5.0 %)</content> UNK 0.0-0.6 <content [facility] styleCode="Bold Niall ">Eosinophil Medical Count Center </content>0.10 KC[facility]M<content styleCode="Ital ics"> (0.0-0.6 [facility])</content > UNK 0 <content [facility] styleCode="Bold Niall ">Nucleated Red Medical Blood Cell Center </content>0.0 /100<content styleCode="Ital ics"> (0 /100)</content> UNK 0-0.1 <content styleCode="Bold Niall ">Immature Medical Granulocyte Center Count </content>0.04 KCUMM<content styleCode="Ital ics"> (0-0.1 [facility])</content > UNK 0.0 <content styleCode="Bold Niall ">Nucleated Red Medical Blood Cell Center Count </content>0.00 KCUMM<content styleCode="Ital ics"> (0.0 [facility])</content > Basophils 0.0-1.0 <content [facility] [#/volume] in styleCode="Bold Niall Blood by ">Basophil Medical Automated count </content>0.6 Center %<content styleCode="Ital ics"> (0.0-1.0 %)</content> UNK 0.0-0.3 <content [facility] styleCode="Bold Niall ">Basophil Medical Count Center </content>0.05 KCUMM<content styleCode="Ital ics"> (0.0-0.3 [facility])</content > UNK < 1 <content [facility] styleCode="Bold Niall ">Immature Medical Granulocyte Center Ratio </content>0.5 %<content styleCode="Ital ics"> (< 1 %)</content> ID Date Data Source GFR(Creatinine) 03/07/2019 10:01:00 AM EDT [facility] Name Value Range Interpretation Code Description Data Dee rce(s) Supporting Document(s ) UNK > 60 <content [facility] styleCode="Bold"> Medical Cent er EGFR </content>96 GFR<content styleCode="Italic s"> (> 60 GFR)</content> ID Date Data Source CHMROUTINECCDA 03/07/2019 10:01:00 AM EDT [facility] Name Value Range Interpretation Description Data Sup porting Code Source(s) Document(s ) UNK 4.2-5.8 <content [facility] styleCode="Bold Medical ">Hemoglobin Center A1C </content>5.7 %<content styleCode="Ital ics"> (4.2-5.8 %)</content> UNK >= 1.0 <content [facility] styleCode="Bold Medical ">AG Ratio Center </content>1.5 <content styleCode="Ital ics"> (>= 1.0 )</content> UNK 2.3-3.5 <content [facility] styleCode="Bold Medical ">Globulin Center </content>3.1 G/DL<content styleCode="Ital ics"> (2.3-3.5 G/DL)</content> Protein 6.3-8.2 <content [facility] [Mass/volum styleCode="Bold Medical e] in Serum ">Total Protein Center or Plasma </content>7.7 G/DL<content styleCode="Ital ics"> (6.3-8.2 G/DL)</content> ID Date Data Source BMP 03/07/2019 10:01:00 AM EDT [facility] Name Value Range Interpretation Description Data Sup porting Code Source(s) Document(s ) Sodium 137-145 <content [facility] [Moles/volume] in styleCode="Bold"> Noe [facility] Serum or Plasma Sodium Medical </content>141 Center MEQ/L<content styleCode="Italic s"> (137-145 MEQ/L)</content> Potassium 3.5-5.3 <content [facility] [Moles/volume] in styleCode="Bold"> Noe phs Serum or Plasma Potassium Medical </content>4.9 Center MEQ/L<content styleCode="Italic s"> (3.5-5.3 MEQ/L)</content> Carbon dioxide, 22-30 Above high <content [facility] total normal styleCode="Bold"> Niall [Moles/volume] in Carbon Dioxide Medical Serum or Plasma </content>31 Center MEQ/L H<content styleCode="Italic s"> (22-30 MEQ/L)</content> UNK 9-20 <content [facility] styleCode="Bold"> Niall BUN </content>13 Medical MG/DL<content Center styleCode="Italic s"> (9-20 MG/DL)</content> Glucose 74-106 Above high <content [facility] [Mass/volume] in normal styleCode="Bold"> Loyd hs Serum or Plasma Glucose Medical </content>115 Center MG/DL H<content styleCode="Italic s"> (74-106 MG/DL)</content> Chloride 98-107 <content [facility] [Moles/volume] in styleCode="Bold"> Noe [facility] Serum or Plasma Chloride Medical </content>101 Center MEQ/L<content styleCode="Italic s"> (98-107 MEQ/L)</content> Creatinine 0.5-1.3 <content [facility] [Mass/volume] in styleCode="Bold"> Loyd hs Serum or Plasma Creatinine Medical </content>0.9 Center MG/DL<content styleCode="Italic s"> (0.5-1.3 MG/DL)</content> Alanine 7-50 <content [facility] aminotransferase styleCode="Bold"> Loyd hs [Enzymatic Alanine Medical activity/volume] Aminotransferase Center in Serum or Plasma (ALT) </content>22 IU/L<content styleCode="Italic s"> (7-50 IU/L)</content> Aspartate 17-59 <content [facility] aminotransferase styleCode="Bold"> Loyd hs [Enzymatic Aspartate Medical activity/volume] Aminotransferase Center in Serum or Plasma (AST) </content>22 IU/L<content styleCode="Italic s"> (17-59 IU/L)</content> UNK > 60 <content [facility] styleCode="Bold"> Niall EGFR </content>96 Medical GFR<content Center styleCode="Italic s"> (> 60 GFR)</content> Alkaline 38-126 <content [facility] phosphatase styleCode="Bold"> Niall [Enzymatic Alkaline Medical activity/volume] Phosphatase (ALP) Cente r in Serum or Plasma </content>100 IU/L<content styleCode="Italic s"> (38-126 IU/L)</content> Calcium 8.4-10. <content [facility] [Mass/volume] in 2 styleCode="Bold"> Loyd hs Serum or Plasma Calcium Medical </content>9.6 Center MG/DL<content styleCode="Italic s"> (8.4-10.2 MG/DL)</content> Bilirubin.total 0.2-1.3 <content [facility] [Mass/volume] in styleCode="Bold"> Loyd hs Serum or Plasma Bilirubin Total Medical </content>0.4 Center MG/DL<content styleCode="Italic s"> (0.2-1.3 MG/DL)</content> Albumin 3.5-5.0 <content [facility] [Mass/volume] in styleCode="Bold"> Loyd hs Serum or Plasma Albumin Medical </content>4.6 Center G/DL<content styleCode="Italic s"> (3.5-5.0 G/DL)</content> ID Date Data Source Urinalysis.[id number] 08/27/2018 12:50:00 AM EDT [facility] 0 Name Value Range Interpretation Description Data Sup porting Code Source(s) Document(s ) Glucose NEGATIVE <content [facility] [Mass/volume] styleCode="Sherice Niall in Urine by d">Urine Medical Test strip Glucose Center </content>NEGA TIVE MG/DL<content styleCode="Kelly lics"> (NEGATIVE MG/DL)</conten t> UNK CLEAR <content [facility] styleCode="Sherice Niall d">Urine Medical Clarity Center </content>SAVANNAH R <content styleCode="Kelly lics"> (CLEAR )</content> Color of Urine YELLOW <content [facility] styleCode="Sherice Niall d">Color, Medical Urine Center </content>YELL OW <content styleCode="Kelly lics"> (YELLOW )</content> UNK NEGATIVE <content [facility] styleCode="Sherice Niall d">Urine Medical Bilirubin Center </content>NEGA TIVE <content styleCode="Kelly lics"> (NEGATIVE )</content> Hemoglobin NEGATIVE <content [facility] [Presence] in styleCode="Sherice Niall Urine by Test d">Urine Blood Medical strip </content>NEGA Center TIVE <content styleCode="Kelly lics"> (NEGATIVE )</content> Ketones NEGATIVE <content [facility] [Mass/volume] styleCode="Sherice Niall in Urine by d">Urine Medical Test strip Ketone Center </content>NEGA TIVE MG/DL<content styleCode="Kelly lics"> (NEGATIVE MG/DL)</conten t> Specific 1.015-1.02 <content [facility] gravity of 5 styleCode="Sherice Niall Urine by Test d">Urine Medical strip Specific Center [place] </content>1.02 0 NM<content styleCode="Kelly lics"> (1.015-1.025 NM)</content> pH of Urine by 4.5-8.0 <content [facility] Test strip styleCode="Sherice Niall d">Urine pH Medical </content>6.5 Center NM<content styleCode="Kelly lics"> (4.5-8.0 NM)</content> Protein NEGATIVE <content [facility] [Mass/volume] styleCode="Sherice Niall in Urine by d">Urine Medical Test strip Protein Center </content>NEGA TIVE MG/DL<content styleCode="Kelly lics"> (NEGATIVE MG/DL)</conten t> Nitrite NEGATIVE <content [facility] [Presence] in styleCode="Sherice Niall Urine by Test d">Urine Medical strip Nitrite Center </content>NEGA TIVE <content styleCode="Kelly lics"> (NEGATIVE )</content> Leukocyte NEGATIVE <content [facility] esterase styleCode="Sherice Niall [Presence] in d">Urine Medical Urine by Test Leukocyte Center strip </content>NEGA TIVE <content styleCode="Kelly lics"> (NEGATIVE )</content> Urobilinogen 0.2-1.0 <content [facility] [Units/volume] styleCode="Sherice Niall in Urine by d">Urine Medical Test strip Urobilinogen Center </content>0.2 MG/DL<content styleCode="Kelly lics"> (0.2-1.0 MG/DL)</conten t> ID Date Data Source Liver 08/27/2018 12:45:00 AM EDT [facility] Profile.[id number] Name Value Range Interpretation Description Data Sup porting Code Source(s) Document(s ) Aspartate 17-59 <content [facility] aminotransferase styleCode="Bold"> Loyd hs [Enzymatic Aspartate Medical activity/volume] Aminotransferase Center in Serum or Plasma (AST) </content>18 IU/L<content styleCode="Italic s"> (17-59 IU/L)</content> Alanine 7-50 <content [facility] aminotransferase styleCode="Bold"> Loyd hs [Enzymatic Alanine Medical activity/volume] Aminotransferase Center in Serum or Plasma (ALT) </content>20 IU/L<content styleCode="Italic s"> (7-50 IU/L)</content> Alkaline 38-126 <content [facility] phosphatase styleCode="Bold"> Niall [Enzymatic Alkaline Medical activity/volume] Phosphatase (ALP) Cente r in Serum or Plasma </content>119 IU/L<content styleCode="Italic s"> (38-126 IU/L)</content> Bilirubin.total 0.2-1.3 <content [facility] [Mass/volume] in styleCode="Bold"> Loyd hs Serum or Plasma Bilirubin Total Medical </content>0.3 Center MG/DL<content styleCode="Italic s"> (0.2-1.3 MG/DL)</content> UNK 0.0-0.3 <content Saint styleCode="Bold"> Niall Bilirubin, Direct Medical </content>< 0.2 Center MG/DL<content styleCode="Italic s"> (0.0-0.3 MG/DL)</content> Albumin 3.5-5.0 <content [facility] [Mass/volume] in styleCode="Bold"> Loyd hs Serum or Plasma Albumin Medical </content>4.0 Center G/DL<content styleCode="Italic s"> (3.5-5.0 G/DL)</content> ID Date Data Source HematologyRou.[id number] 08/27/2018 12:45:00 AM EDT [facility] 0400 Name Value Range Interpretation Description Data Sup porting Code Source(s) Document(s ) Leukocytes 4.4-11.0 <content [facility] [#/volume] in styleCode="Bold Niall Blood by ">White Blood Medical Automated count Cell Count Center </content>10.02 KCUMM<content styleCode="Ital ics"> (4.4-11.0 KCUMM)</content > Hemoglobin 13.5-17. <content [facility] [Mass/volume] in 5 styleCode="Bold Niall Blood ">Hemoglobin Medical </content>14.1 Center G/DL<content styleCode="Ital ics"> (13.5-17.5 G/DL)</content> Erythrocytes 4.4-5.9 <content [facility] [#/volume] in styleCode="Bold Niall Blood by ">Red Blood Medical Automated count Cell Count Center </content>4.56 MCUMM<content styleCode="Ital ics"> (4.4-5.9 MCUMM)</content > Erythrocyte 11.5-14. <content [facility] distribution 5 styleCode="Bold Niall width [Ratio] by ">Red Cell Medical Automated count Distribution Center Width </content>12.8 %<content styleCode="Ital ics"> (11.5-14.5 %)</content> Hematocrit 41.0-53. <content [facility] [Volume 0 styleCode="Bold Niall Fraction] of ">Hematocrit Medical Blood by </content>41.0 Center Automated count %<content styleCode="Ital ics"> (41.0-53.0 %)</content> Erythrocyte mean 80.0-100 <content [facility] corpuscular .0 styleCode="Bold Niall volume [Entitic ">Mean Medical volume] by Corpuscular Center Automated count Volume </content>89.9 FL<content styleCode="Ital ics"> (80.0-100.0 FL)</content> Erythrocyte mean 26.0-34. <content [facility] corpuscular 0 styleCode="Bold Niall hemoglobin ">Mean Medical [Entitic mass] Corposcular Center by Automated Hemoglobin count </content>30.9 PG<content styleCode="Ital ics"> (26.0-34.0 PG)</content> Erythrocyte mean 32.0-37. <content [facility] corpuscular 0 styleCode="Bold Niall hemoglobin ">Mean Corpus. Medical concentration Hgb Center [Mass/volume] by Concentration Automated count (MCHC) </content>34.4 G/DL<content styleCode="Ital ics"> (32.0-37.0 G/DL)</content> UNK 0.0 <content Saint styleCode="Bold Niall ">Nucleated Red Medical Blood Cell Center Count </content>0.00 KCUMM<content styleCode="Ital ics"> (0.0 KCUMM)</content > UNK 0 <content Saint styleCode="Bold Niall ">Nucleated Red Medical Blood Cell Center </content>0.0 /100<content styleCode="Ital ics"> (0 /100)</content> Platelets 130-400 <content Saint [#/volume] in styleCode="Bold Niall Blood by ">Platelet Medical Automated count Count Center </content>224 KCUMM<content styleCode="Ital ics"> (130-400 KCUMM)</content > Platelet mean 8.0-11.0 <content [facility] volume [Entitic styleCode="Bold Niall volume] in Blood ">Mean Platelet Medical by Automated Volume Center count </content>11.0 FL<content styleCode="Ital ics"> (8.0-11.0 FL)</content> ID Date Data Source GFR(Creatinine).[id number] 08/27/2018 12:45:00 AM EDT [facility] 0-0400 Name Value Range Interpretation Code Description Data Dee rce(s) Supporting Document(s ) UNK > 60 <content [facility] styleCode="Bold"> Medical Cent er EGFR </content>86 GFR<content styleCode="Italic s"> (> 60 GFR)</content> ID Date Data Source [facility].[id number] 08/27/2018 12:45:00 AM EDT [facility] Name Value Range Interpretation Description Data Sup porting Code Source(s) Document(s ) Potassium 3.5-5.3 <content [facility] [Moles/volume] in styleCode="Bold"> Noe phs Serum or Plasma Potassium Medical </content>3.7 Center MEQ/L<content styleCode="Italic s"> (3.5-5.3 MEQ/L)</content> Chloride 98-107 <content [facility] [Moles/volume] in styleCode="Bold"> Noe phs Serum or Plasma Chloride Medical </content>102 Center MEQ/L<content styleCode="Italic s"> (98-107 MEQ/L)</content> Sodium 137-145 Below low <content [facility] [Moles/volume] in normal styleCode="Bold"> Noe phs Serum or Plasma Sodium Medical </content>136 Center MEQ/L L<content styleCode="Italic s"> (137-145 MEQ/L)</content> Creatinine 0.5-1.3 <content [facility] [Mass/volume] in styleCode="Bold"> Loyd hs Serum or Plasma Creatinine Medical </content>1.0 Center MG/DL<content styleCode="Italic s"> (0.5-1.3 MG/DL)</content> UNK 9-20 <content [facility] styleCode="Bold"> Niall BUN </content>13 Medical MG/DL<content Center styleCode="Italic s"> (9-20 MG/DL)</content> Glucose 74-106 Above high <content [facility] [Mass/volume] in normal styleCode="Bold"> Loyd hs Serum or Plasma Glucose Medical </content>132 Center MG/DL H<content styleCode="Italic s"> (74-106 MG/DL)</content> Calcium 8.4-10. <content [facility] [Mass/volume] in 2 styleCode="Bold"> Loyd hs Serum or Plasma Calcium Medical </content>8.8 Center MG/DL<content styleCode="Italic s"> (8.4-10.2 MG/DL)</content> Carbon dioxide, 22-30 <content [facility] total styleCode="Bold"> Niall [Moles/volume] in Carbon Dioxide Medical Serum or Plasma </content>24 Center MEQ/L<content styleCode="Italic s"> (22-30 MEQ/L)</content> Albumin 3.5-5.0 <content [facility] [Mass/volume] in styleCode="Bold"> Loyd hs Serum or Plasma Albumin Medical </content>4.0 Center G/DL<content styleCode="Italic s"> (3.5-5.0 G/DL)</content> UNK > 60 <content [facility] styleCode="Bold"> Niall EGFR </content>86 Medical GFR<content Center styleCode="Italic s"> (> 60 GFR)</content> Bilirubin.total 0.2-1.3 <content [facility] [Mass/volume] in styleCode="Bold"> Loyd hs Serum or Plasma Bilirubin Total Medical </content>0.3 Center MG/DL<content styleCode="Italic s"> (0.2-1.3 MG/DL)</content> Aspartate 17-59 <content [facility] aminotransferase styleCode="Bold"> Loyd hs [Enzymatic Aspartate Medical activity/volume] Aminotransferase Center in Serum or Plasma (AST) </content>18 IU/L<content styleCode="Italic s"> (17-59 IU/L)</content> Alanine 7-50 <content [facility] aminotransferase styleCode="Bold"> Loyd hs [Enzymatic Alanine Medical activity/volume] Aminotransferase Center in Serum or Plasma (ALT) </content>20 IU/L<content styleCode="Italic s"> (7-50 IU/L)</content> Alkaline 38-126 <content [facility] phosphatase styleCode="Bold"> Niall [Enzymatic Alkaline Medical activity/volume] Phosphatase (ALP) Cente r in Serum or Plasma </content>119 IU/L<content styleCode="Italic s"> (38-126 IU/L)</content> ID Date Data Source [facility].[id number] 08/21/2018 08:42:[address] [facility] Name Value Range Interpretation Description Data Sup porting Code Source(s) Document(s ) Triglyceride < 150 <content [facility] [Mass/volume] in styleCode="Sherice Tierney Serum or Plasma d">Triglycerid [facility] Center </content>87 MG/DL<content styleCode="Kelly lics"> (< 150 MG/DL)</conten t> Cholesterol -<200 <content [facility] [Mass/volume] in styleCode="Sherice Conns Serum or Plasma d">Cholesterol Medical </content>179 Center MG/DL<content styleCode="Kelly lics"> (-<200 MG/DL)</conten t> UNK > 60 Below low normal <content Saint styleCode="Sherice Conns d">HDL- Medical Cholesterol Center </content>47 MG/DL L<content styleCode="Kelly lics"> (> 60 MG/DL)</conten t> UNK < 100 Above high normal <content Saint styleCode="Sherice Conns d">LDL-Cholest [facility] </content>115 MG/DL H<content styleCode="Kelly lics"> (< 100 MG/DL)</conten t> ID Date Data Source GFR(Creatinine).[id number] 08/21/2018 08:42:00 AM EDT [facility] 0-0400 Name Value Range Interpretation Code Description Data Dee rce(s) Supporting Document(s ) UNK > 60 <content [facility] styleCode="Bold"> Medical Cent er EGFR </content>97 GFR<content styleCode="Italic s"> (> 60 GFR)</content> ID Date Data Source [facility].[id number] 08/21/2018 08:42:00 AM EDT [facility] -0400 Name Value Range Interpretation Code Description Data Dee rce(s) Supporting Document(s ) UNK 4.2-5.8 Above high normal <content [facility] Conn s styleCode="Bold" Medical Cente r >Hemoglobin A1C </content>5.9 % H<content styleCode="Itali cs"> (4.2-5.8 %)</content> ID Date Data Source [facility].[id number] 08/21/2018 08:42:00 AM EDT [facility] Name Value Range Interpretation Description Data Sup porting Code Source(s) Document(s ) Chloride 98-107 <content [facility] [Moles/volume] styleCode="Sherice Conns in Serum or d">Chloride Medical Plasma </content>101 Center MEQ/L<content styleCode="Kelly lics"> (98-107 MEQ/L)</conten t> Sodium 137-145 <content [facility] [Moles/volume] styleCode="Sherice Niall in Serum or d">Sodium Medical Plasma </content>139 Center MEQ/L<content styleCode="Kelly lics"> (137-145 MEQ/L)</conten t> Potassium 3.5-5.3 <content [facility] [Moles/volume] styleCode="Sherice Conns in Serum or d">Potassium Medical Plasma </content>4.5 Center MEQ/L<content styleCode="Kelly lics"> (3.5-5.3 MEQ/L)</conten t> Carbon 22-30 <content Saint dioxide, total styleCode="Sherice Conns [Moles/volume] d">Carbon Medical in Serum or Dioxide Center Plasma </content>29 MEQ/L<content styleCode="Kelly lics"> (22-30 MEQ/L)</conten t> UNK > 60 <content Saint styleCode="Sherice Conns d">EGFR Medical </content>97 Center GFR<content styleCode="Kelly lics"> (> 60 GFR)</content> Glucose 74-106 <content [facility] [Mass/volume] styleCode="Sherice Conns in Serum or d">Glucose Medical Plasma </content>103 Center MG/DL<content styleCode="Kelly lics"> (74-106 MG/DL)</conten t> UNK 9-20 <content Saint styleCode="Sherice Niall d">BUN Medical </content>12 Center MG/DL<content styleCode="Kelly lics"> (9-20 MG/DL)</conten t> Calcium 8.4-10.2 <content [facility] [Mass/volume] styleCode="Sherice Niall in Serum or d">Calcium Medical Plasma </content>9.1 Center MG/DL<content styleCode="Kelly lics"> (8.4-10.2 MG/DL)</conten t> Creatinine 0.5-1.3 <content [facility] [Mass/volume] styleCode="Sherice Niall in Serum or d">Creatinine Medical Plasma </content>0.9 Center MG/DL<content styleCode="Kelly lics"> (0.5-1.3 MG/DL)</conten t> Procedure Social History Code Duration Value Status Description Data Source(s ) Caffeine Use 06/19/2020 coffee completed coffee NEXTGEN ([facility] Details 12:00:00 AM [facility]) 06/19/2020 Occasional completed Occasional NEXTGEN ([facility] 12:00:00 AM cigarette smoker cigarette smoker [facility]) Alcohol Use 06/19/2020 beer 2 beers completed beer 2 beers NEXTGEN ( [facility] Details 12:00:00 AM rarely rarely [facility]) Smoking 06/19/2020 Unknown if ever completed Unknown if ever NEXT GEN ([facility] 12:00:00 AM smoked smoked [facility]) Smoking 12/25/2018 Denies Ever completed Denies Ever [facility] 11:30:00 PM Smoked Smoked Medical Cente r EST Smoking 12/25/2018 Denies Ever completed Denies Ever [facility] 10:54:00 PM Smoked Smoked Medical Cente r EST Smoking Unknown if ever completed Unknown if ever Eliazar t [facility] smoked smoked Medical Center Vital Signs ID Date Data Source UNK Name Value Range Interpretation Code Description Data Source(s) Oxygen saturation 96 % 96 % NEXTGEN ([facility] in Arterial blood [facility] by Pulse oximetry Center) Body mass index 37.46 kg/m2 Overweight 37.46 kg/m2 NEXTGEN ([facility] (BMI) [Ratio] [facility] Respiratory rate 20 /min 20 /min NEXTGEN ([facility]) Body temperature 36.61 Amarilys 36.61 Amarilys [facility] ([facility]) Heart rate 82 /min 82 /min [facility] ([facility]) Diastolic blood 78 mm[Hg] 78 mm[Hg] NEXTGEN ( [facility]) Systolic blood 128 mm[Hg] 128 mm[Hg] NEXTGEN (S aint pressure [facility]) Body weight 92.896 kg 92.896 kg NEXTGEN ([facility]) Body height 157.48 cm 157.48 [facility] Oxygen saturation 97 % 97 % NEXTGEN ([facility] in Arterial blood [facility] by Pulse oximetry Center) Body mass index 36.95 kg/m2 Overweight 36.95 kg/m2 NEXTGEN ([facility] (BMI) [Ratio] [facility]) Respiratory rate 18 /min 18 /min NEXTGEN ([facility]) Body temperature 36.17 Amarilys 36.17 [facility]ilys [facility] Heart rate 82 /min 82 /min NEXTGEN ([facility]) Diastolic blood 84 mm[Hg] 84 mm[Hg] NEXTGEN ( [facility]) Systolic blood 144 mm[Hg] 144 mm[Hg] [facility] (S nt pressure [facility]) Body weight 91.626 kg 91.626 [facility] Body height 157.48 cm 157.48 cm [facility] ([facility]) Oxygen saturation 97 % 97 % NEXTGEN ([facility] in Arterial [facility] by Pulse oximetry Center) Body mass index 36.95 kg/m2 Overweight 36.95 kg/m2 NEXTGEN ([facility] (BMI) [Ratio] [facility]) Respiratory rate 18 /min 18 /min NEXTGEN ([facility]) Body temperature 36.33 Amarilys 36.33 Amarilys [facility] Heart rate 85 /min 85 /min NEXTGEN ([facility]) Diastolic blood 87 mm[Hg] 87 mm[Hg] [facility] ( [facility]) Systolic blood 137 mm[Hg] 137 mm[Hg] [facility] (S aint pressure [facility]) Body weight 91.626 kg 91.626 kg [facility] Body height 157.48 cm 157.48 cm [facility] ([facility]) Oxygen saturation 96 % 96 % NEXTGEN ([facility] in Arterial [facility] by Pulse oximetry Center) Body mass index 30.54 kg/m2 Overweight 30.54 kg/m2 NEXTGEN ([facility] (BMI) [Ratio] [facility]) Respiratory rate 18 /min 18 /min [facility]) Body temperature 36.56 Amarilys 36.56 Amarilys [facility] ([facility]) Heart rate 61 /min 61 /min [facility] ([facility]) Diastolic blood 65 mm[Hg] 65 mm[Hg] [facility] ( [facility]) Systolic blood 123 mm[Hg] 123 mm[Hg] [facility] (S [facility]) Body weight 75.750 kg 75.750 kg [facility] ([facility]) Body height 157.48 cm 157.48 cm [facility] ([facility]) Oxygen saturation 98 % 98 % NEXTGEN ([facility] in Arterial [facility] by Pulse oximetry Center) Body mass index 34.02 kg/m2 Overweight 34.02 kg/m2 NEXTGEN ([facility] (BMI) [Ratio] [facility]) Respiratory rate 18 /min 18 /min [facility] ([facility]) Body temperature 37.00 Amarilys 37.00 Amarilys [facility] ([facility]) Heart rate 77 /min 77 /min [facility] ([facility]) Diastolic blood 73 mm[Hg] 73 mm[Hg] [facility] ( [facility]) Systolic blood 112 mm[Hg] 112 mm[Hg] [facility] (S aint [facility]) Body weight 84.368 kg 84.368 kg [facility] ([facility]) Body height 157.48 cm 157.48 cm [facility] ([facility]) Respiratory rate 16 /min 16 /min [facility] Oxygen saturation 99 % 99 % [facility] fadia in [facility] by Pulse oximetry Heart rate 90 /min 90 /min [facility] Diastolic blood 77 mm[Hg] 77 mm[Hg] [facility] Systolic blood 128 mm[Hg] 128 mm[Hg] [facility] Body temperature 36.722923 36.954099 [facility] Respiratory rate 18 /min 18 /min [facility] Oxygen saturation 96 % 96 % [facility] in Arterial blood Medical Center by Pulse oximetry Heart rate 95 /min 95 /min [facility] Diastolic blood 80 mm[Hg] 80 mm[Hg] [facility] Systolic blood 135 mm[Hg] 135 mm[Hg] [facility] Patient Treatment Plan of Care Planned Activity Planned Date Details Description Data Source (s) Famotidine 40 MG Oral 06/19/2020 12:00:00 NEXTGEN ([facility] Tablet [facility]) Omeprazole 20 MG Delayed 12/28/2019 12:00:00 NEXTGEN (Saint Release Oral Capsule [facility]) POLYETHYLENE GLYCOL 3350 10/18/2019 12:00:00 NEXTGEN ([facility] 142 MG/ML Oral Solution [facility] [Miralax] [place]) Clotrimazole 10 MG/ML 05/11/2019 12:00:00 NEXTGEN ([facility] Topical Cream [facility]) Ibuprofen 400 MG Oral 03/08/2019 12:00:00 NEXTGEN ([facility] Tablet [facility]) Ibuprofen 800 MG Oral [facility]
[2020-08-14 19:29] LABS: URINE APPEARANCE CLEAR; URINE BILIRUBIN NEGATIVE (NEGATIVE); URINE COLOR YELLOW; URINE GLUCOSE (UA) NEGATIVE (NEGATIVE); URINE KETONE NEGATIVE (NEGATIVE); URINE LEUK ESTERASE NEGATIVE (NEGATIVE); URINE NITRITE NEGATIVE (NEGATIVE); URINE PROTEIN NEGATIVE (NEGATIVE); URINE UROBILINOGEN 0.2 mg/dL (0.2-1.0)
--- NOTE | 2020-08-14 19:43 | PDOC ---
History of Present Illness - General Chief Complaint: Back Pain Stated Complaint: BACK PAIN Time Seen by Provider: 08/14/20 16:51 - History of Present Illness Initial Comments: 08/14/20 19:39 49-year-old male denies comorbidities presents for evaluation of right-sided lower back pain x2 days no systemic symptoms radicular symptoms or loss of bowel bladder function. Past History - Medical History Allergies/Adverse Reactions: Allergies Allergy/AdvReac Type Severity Reaction Status Date / Time No Known Allergies Allergy Verified 08/14/20 16:52 Home Medications: Ambulatory Orders Cyclobenzaprine HCl [Flexeril 10 mg] 10 mg PO HS PRN #10 tablet 08/14/20 COPD: No - Surgical History Abdominal Surgery: Yes (rt inguinal) - Psycho-Social/Smoking History Smoking Status: No Smoking History: Never smoked Number of Cigarettes Smoked Daily: 0 - Substance Abuse Hx (Audit-C & DAST Scrn) How often the patient has a drink containing alcohol: Monthly or less How often the patient has six or more drinks on one occasion: Never Score: In Men: 4 or > Positive; In Women: 3 or > Positive: 1 Screen Result (Pos requires Nsg. Audit-10AR): Negative In the last yr the pt used illegal drug/Rx for NonMed reason: No Score: Yes response is considered Positive: 0 Screen Result (Positive result requires Nsg. DAST-10): Negative Review of Systems - Review of Systems Musculoskeletal: Yes: Back Pain *Physical Exam - Vital Signs Last Vital Signs Temp Pulse Resp BP Pulse Ox 97.4 F L 80 18 122/79 99 08/14/20 16:52 08/14/20 16:52 08/14/20 16:52 08/14/20 16:52 08/14/20 16:52 - Physical Exam 08/14/20 19:40 My lumbar spine exam Lumbar spine skin color temperature normal range of motion is slightly decreased. No midline tenderness. Moderate bilateral paralumbar musculature spasm and tenderness 5 out of 5 strength bilateral lower extremities without gross sensorimotor deficits thighs and calves are soft and nontender neurovascular intact Tenderness over the right side of the ribs posteriorly. No CVA tenderness. ED Treatment Course - LABORATORY CBC & Chemistry Diagram: 08/14/20 17:37 08/14/20 17:37 - ADDITIONAL ORDERS Additional order review: Laboratory Results 08/14/20 08/14/20 17:37 17:37 Sodium 139 Potassium 3.8 Chloride 104 Carbon Dioxide 26 Anion Gap 10 BUN 10.1 Creatinine 1.0 Est GFR (CKD-EPI)AfAm 102.69 Est GFR (CKD-EPI)NonAf 88.61 Random Glucose 105 Calcium 9.0 Total Bilirubin 0.7 AST 27 ALT 43 Alkaline Phosphatase 116 Total Protein 7.8 Albumin 4.4 Urine Color Yellow Urine Appearance Clear Urine pH 6.0 Ur Specific [place] 1.004 L Urine Protein Negative Urine Glucose (UA) Negative Urine Ketones Negative Urine Blood Negative Urine Nitrite Negative Urine Bilirubin Negative Urine Urobilinogen 0.2 Ur Leukocyte Esterase Negative 08/14/20 17:37 RBC 4.63 MCV 90.3 MCHC 33.9 RDW 13.5 MPV 9.4 Neutrophils % 68.8 Lymphocytes % 23.8 Monocytes % 5.0 Eosinophils % 1.7 Basophils % 0.7 - RADIOLOGY Radiology Studies Ordered: Category Date Time Status CHEST PA & LAT [RAD] Stat Radiology 08/14/20 17:11 Completed RIBS RIGHT SIDE [RAD] Stat Radiology 08/14/20 17:11 Completed Medical Decision Making - Medical Decision Making 08/14/20 19:40 Chest x-ray and rib x-rays no fracture trauma or destructive process thoracic spine strain Tylenol and Motrin Flexeril. Follow-up with Ortho patient was concerned about his kidneys laboratory work was unremarkable My patient understandingI have reviewed the pathophysiology with the patient. They are in agreement with the treatment plan all questions were answered to their satisfaction. Understanding for follow-up without fail was also conveyed to the patient. Again they are in agreement. Discharge - Discharge Information Problems reviewed: Yes Clinical Impression/Diagnosis: Low back ache Qualifiers: Chronicity: acute Back pain laterality: right Sciatica presence: without sciatica Qualified Code(s): M54.5 - Low back pain Condition: Stable Disposition: HOME - Admission No - Follow up/Referral Referrals: Rehan Elam DO [Staff Physician] - - Patient Discharge Instructions Additional Instructions: Continue your at home Aleve and Tylenol as directed for pain. I prescribed you a muscle relaxer. 1 tablet before bed. Will make you sleepy. Return to the emergency room for worsening symptoms and without fail follow-up with orthopedic surgery in 1 to 2 days for further evaluation and treatment options. - Post Discharge Activity
== END 2020-08-14 20:00 | disposition home or self-care (01) ==
LOC: JERFT 16:35
DX: M54.5 Low back pain (principal)
CPT/HCPCS: 36415; 71046-TC-FY; 71101-TC-RT-FY; 80053; 81003; 85025; 87086; 99285-25

== ENCOUNTER 2022-05-18 12:42 | Emergency (ER) | payer OTHER ==
[2022-05-18 12:46] VITALS: BP 115/82; PULSE 92; TEMP 97.9
[2022-05-18] MEDS ORDERED: CEPHALEXIN MONOHYDRATE 500 MG CAPSULE (UD) PO ONE (14:26)
[2022-05-18] MEDS ORDERED: KETOROLAC TROMETHAMINE 30 MG/1 ML VIAL IM ONE (14:26)
[2022-05-18] MEDS ORDERED: CEPHALEXIN MONOHYDRATE 500 MG CAPSULE (UD) ONE (14:36)
[2022-05-18] MEDS ORDERED: KETOROLAC TROMETHAMINE 30 MG/1 ML VIAL ONE (14:36)
== END 2022-05-18 14:49 | disposition home or self-care (01) ==
LOC: JER 12:42
PROC: 3E0233Z Introduction of Anti-inflammatory into Muscle, Percutaneous Approach (ICD-10-PCS; principal; 2022-05-18)
DX: L03.311 Cellulitis of abdominal wall (principal)
CPT/HCPCS: 99283-25

== ENCOUNTER 2023-10-17 08:24 | Emergency (ER) | payer OTHER ==
[2023-10-17] MEDS ORDERED: VANCOMYCIN 1,000 MG in DEXTROSE 5%-WATER - 250 ML IVPB ONE (09:08)
[2023-10-17] MEDS ORDERED: AMPICILLIN NA/SULBACTAM NA 3 GM in SODIUM CHLORIDE 100 ML IVPB ONE (09:11)
[2023-10-17] MEDS ORDERED: TETRACAINE 0.5% HCL 0.6ML DROPPER.BOTTLE OS ONE (09:16)
[2023-10-17] MEDS ORDERED: TETRACAINE 0.5% OPHTH SOLN 2 ML BOTTLE ONE (09:28)
[2023-10-17] MEDS ORDERED: FLUORESCEIN NA 1 EA STRIP OS ONE (09:29)
[2023-10-17] MEDS ORDERED: FLUORESCEIN NA 1 EA STRIP ONE (09:30)
[2023-10-17 09:31] VITALS: PULSE 88; BMI 33.3
[2023-10-17] MEDS ORDERED: VANCOMYCIN 1 GRAM (PRE-DOCKED) 1,000 MG/250 ML BAG IVPB ONE (09:33)
[2023-10-17] MEDS ORDERED: ACETAMINOPHEN 500 MG TABLET (FP) PO ONE (10:14)
[2023-10-17] MEDS ORDERED: IBUPROFEN 600 MG TABLET (FP) PO ONE ×2 (10:15→10:17)
[2023-10-17] MEDS ORDERED: ACETAMINOPHEN 500 MG TABLET (FP) ONE (10:17)
[2023-10-17] MEDS ORDERED: ERYTHROMYCIN 0.5% OPHTHALMIC OINTMENT 3.5 GM TUBE OS SCH (12:00)
[2023-10-17 12:50] VITALS: BP 115/69; RESP 18; TEMP 98.5
== END 2023-10-17 12:49 | disposition home or self-care (01) ==
LOC: JERFT 08:24
DX: H02.844 Edema of left upper eyelid (principal); H57.11 Ocular pain, right eye; L03.213 Periorbital cellulitis
CPT/HCPCS: 99284-25

== ENCOUNTER 2024-01-09 08:04 | Emergency (ER) | payer OTHER ==
[2024-01-09 08:24] VITALS: BP 157/77; PULSE 96; RESP 18; TEMP 98.6; BMI 34.3
== END 2024-01-09 08:39 | disposition home or self-care (01) ==
LOC: JER 08:04
DX: J34.0 Abscess, furuncle and carbuncle of nose (principal)
CPT/HCPCS: 99283-25